=== PATIENT | male | born 1985 ===

== ENCOUNTER 2023-08-11 11:06 | Outpatient (REF) | payer MEDICAID, SELFPAY ==
[2023-08-11 14:31] LABS: MANUAL DIFF FLAG NO
[2023-08-11 14:39] LABS: Basophils Absolute Auto 0.1 X10*3/uL (0.0-0.2); Basophils Percent Auto 1.3 % (0-2); Eosinophils Absolute Auto 0.6 X10*3/uL (0.0-0.4); Eosinophils Percent Auto 7.6 % (0-4); Hematocrit 46.7 % (42.0-52.0); Hemoglobin 16.1 g/dl (14.0-18.0); Imm Gran Abs Auto 0.02 X10*3/uL (0.00-0.03); Imm Gran Pct Auto 0.3 % (0.0-0.4); Lymphocytes Absolute Auto 1.7 X10*3/uL (1.2-4.9); Lymphocytes Percent Auto 22.9 % (20-40); Mean Corpuscular HGB Conc 34.5 g/dl (31.0-36.0); Mean Corpuscular Volume 89.8 fL (80.0-98.0); Mean Platelet Volume 11.4 fL (9.4-12.4); Monocytes Absolute Auto 0.6 X10*3/uL (0.1-1.2); Monocytes Percent Auto 8.5 % (2-11); Neutrophils Absolute Auto 4.5 x10*3/uL (2.0-8.3); Neutrophils Percent Auto 59.4 % (45-73); Platelet Count 188 X10*3/uL (160-400); Red Cell Distribution Width 13.2 % (11.0-16.0); White Blood Count 7.5 X10*3/uL (4.8-10.8)
[2023-08-11 15:04] LABS: Alanine Aminotransferase 36 U/L (0-40); Albumin Level 4.4 g/dL (3.5-5.0); Alkaline Phosphatase 80 U/L (39-117); Anion Gap 12 (12-20); Aspartate Amino Transferase 27 U/L (5-37); Bilirubin Total 0.5 mg/dL (0.0-1.0); Blood Urea Nitrogen 14 mg/dL (9-16); Calcium 9.4 mg/dL (8.4-10.2); Carbon Dioxide 26 mmol/L (22-29); Chloride 107 mmol/L (96-108); Cholesterol 259 mg/dL (<200); Estimated Glomerular Filt Rate > 60; Glucose Fasting 76 mg/dL (60-99); HDL Cholesterol 41 mg/dL (>40); LDL Cholesterol Calculated 184 mg/dL (<100); Sodium 141 mmol/L (135-145); Total Protein 7.9 g/dL (6.5-8.0); Triglycerides 173 mg/dL (<150)
== END 2023-08-11 11:07 | disposition home or self-care (01) ==
LOC: HO.CHCLDS 11:06
PROVIDERS: Visit Provider Family Medicine
DX: E78.5 Hyperlipidemia, unspecified (principal)
CPT/HCPCS: 36415; 80053; 80061; 85025

== ENCOUNTER 2023-12-28 23:03 | Emergency (ER) | payer MEDICAID, SELFPAY ==
[2023-12-28 23:09] VITALS: BP 142/87; PULSE 80; RESP 16; TEMP 36.9; O2SAT 99; BMI 32.3
[2023-12-28 23:27] LABS: MANUAL DIFF FLAG NO
[2023-12-28 23:28] LABS: Basophils Absolute Auto 0.1 X10*3/uL (0.0-0.2); Basophils Percent Auto 0.9 % (0-2); Eosinophils Absolute Auto 0.5 X10*3/uL (0.0-0.4); Eosinophils Percent Auto 5.4 % (0-4); Hematocrit 45.8 % (42.0-52.0); Imm Gran Abs Auto 0.02 X10*3/uL (0.00-0.03); Imm Gran Pct Auto 0.2 % (0.0-0.4); Lymphocytes Absolute Auto 2.9 X10*3/uL (1.2-4.9); Lymphocytes Percent Auto 30.3 % (20-40); Mean Corpuscular HGB Conc 34.9 g/dl (31.0-36.0); Mean Corpuscular Volume 88.8 fL (80.0-98.0); Mean Platelet Volume 10.6 fL (9.4-12.4); Monocytes Absolute Auto 0.8 X10*3/uL (0.1-1.2); Monocytes Percent Auto 8.8 % (2-11); Neutrophils Absolute Auto 5.2 x10*3/uL (2.0-8.3); Neutrophils Percent Auto 54.4 % (45-73); Platelet Count 213 X10*3/uL (160-400); Red Blood Count 5.16 X10*6/uL (4.60-5.80); Red Cell Distribution Width 13.2 % (11.0-16.0); White Blood Count 9.6 X10*3/uL (4.8-10.8)
[2023-12-28 23:43] LABS: Alanine Aminotransferase 71 U/L (0-40); Albumin Level 4.6 g/dL (3.5-5.0); Alkaline Phosphatase 81 U/L (39-117); Anion Gap 12 (12-20); Aspartate Amino Transferase 40 U/L (5-37); Bilirubin Direct 0.1 mg/dL (0.0-0.5); Bilirubin Total 0.5 mg/dL (0.0-1.0); Blood Urea Nitrogen 13 mg/dL (9-16); Calcium 9.5 mg/dL (8.4-10.2); Carbon Dioxide 26 mmol/L (22-29); Chloride 107 mmol/L (96-108); Creatinine Clr Calc Pharmacy 102.5; Estimated Glomerular Filt Rate > 60; Glucose Random 110 mg/dL (60-115); Lipase 41 U/L (8-78); Potassium 3.9 mmol/L (3.3-5.1); Sodium 141 mmol/L (135-145); Total Protein 8.1 g/dL (6.5-8.0)
[2023-12-29 03:20] VITALS: BP 138/88; PULSE 64; RESP 16; TEMP 36.8; O2SAT 95
--- OUTSIDE RECORDS SUMMARY | 2023-12-29 03:51 | XMS_ITS | Continuity of Care Document ---
Author Organization [facility] jose luis Address [address] [place] [address] [address] [place] [address]- Care Team Providers Care Wrapper Stripper Name Role Phone Taras CRUZ, Linda Watkins Primary Care Physician [place] [facility] [place] - 02/19/[address] [place] [address]- Attending Physician: Andrew Capps MD Referring Physician: Linda Grajeda NP Allergies, Adverse Reactions, Alerts Substance Reaction Severity Status penicillin Rash Active Immunizations Given and Recorded Vaccine Date Status Refusal Reason SARS-CoV-2 (COVID-19) mRNA-1273 vaccine 01/26/21 R ecorded SARS-CoV-2 (COVID-19) mRNA-1273 vaccine 12/29/20 R ecorded pneumococcal 23-valent vaccine 09/19/18 Given influenza virus vaccine, inactivated 09/19/18 Give n Medications aspirin 81 mg oral delayed release tablet 81 mg, 1, tablet, By Mouth, Daily, # 30 tablet, Refills 11, Tot. Refills 11, Maintenance, 09/24/20 16:12:00 EST, Route to Pharmacy Electronically, [facility] #[id number], 168, cm, 09/23/20 10:39:00 EST, Height, 92.2, kg, 01/29/19 21:34:00 EDTDr... Start Date: 09/24/20 Stop Date: 09/19/21 Status: Ordered atorvastatin 80 mg oral tablet 1 tablet = 80 mg, By Mouth, Daily, replace 40 mg Rx, # 30 tablet, 11 Refills, Maintenance, 218:47:00 EST, Tablet, [facility] #[id number], Partial fill upon patient request if the prescription is for a schedule II opioid drug., 168, cm, .. Start Date: 09/25/20 Stop Date: 09/20/21 Status: Ordered losartan 25 mg oral tablet 25 mg, 1, tablet, By Mouth, Daily, Call if any significant lightheadedness, # 30 tablet, Refills 11, Tot. Refills 11, Maintenance, 09/24/20 16:12:00 EST, Route to Pharmacy Electronically, [facility] #[id number], 168, cm, 09/23/20 10:39:00 EST, He... Start Date: 09/24/20 Stop Date: 09/19/21 Status: Ordered metoprolol 25 mg oral tablet 25 mg, 1, tablet, By Mouth, Daily, # 30 tablet, Refills 11, Tot. Refills 11, Maintenance, 09/24/20 16:12:00 EST, Route to Pharmacy Electronically, [facility] #[id number], 168, cm, 09/23/20 10:39:00 EST, Height, 92.2, kg, 01/29/19 21:34:00 EDTDr... Start Date: 09/24/20 Stop Date: 09/19/21 Status: Ordered Problem List Condition Effective Dates Status Health Status Inform ant CAD (coronary artery disease ), [place] coronary artery(Confirmed) Active Chronic GERD(Confirmed) Active Hx of CABG(Confirmed) 2015 Active Hyperlipidemia(Confirmed) Active Hypertensive heart disease(Confirmed) Active Mild intermittent asthma(Confirmed) Active WENDIE (obstructive sleep apnea)(Confirmed) Active Prediabetes(Confirmed) Active 1Surgery in [place], unknown #vessels Vital Signs Most recent to oldest [Reference Range]: 1 Height 168 cm (02/12/21 11:07 AM) Weight 92 kg (02/12/21 11:07 AM) Body Mass Index [18.5-24.99] 32.6 *>HHI* (02/12/21 11:07 AM) Temperature [96.8-100.4 DegF] 98.6 DegF (02/12/21 11:07 AM) Social History Social History Type Response Tobacco Tobacco user in hous ehold: No. Type: Cigarettes. Tobacco use times per day: Former smoker, 5 cigarettes a day. Started at age: 15 Years. Stopped at age: 22 Years. Sex
--- OUTSIDE RECORDS SUMMARY | 2023-12-29 03:51 | XMS_ITS | Continuity of Care Document ---
Author Organization [facility] Address [address] [place] [address]- Care Team Providers Care Computer Artist Name Role Phone Taras CAN PATCHER, Linda Watkins Primary Care Physician ( [phone] Encounter [facility] Date(s): 11/16/21 - 11/16/[address] [address]- Discharge Disposition: A-D/C Home Attending Physician: Garfield Fuentes MD Admitting Physician: Garfield Fuentes MD Referring Physician: Not on Staff, Referring MD Allergies, Adverse Reactions, Alerts Substance Reaction Severity Status penicillin Rash Active Immunizations Given and Recorded Vaccine Date Status Refusal Reason SARS-CoV-2 (COVID-19) mRNA-1273 vaccine 01/26/21 R ecorded SARS-CoV-2 (COVID-19) mRNA-1273 vaccine 12/29/20 R ecorded pneumococcal 23-valent vaccine 09/19/18 Given influenza virus vaccine, inactivated 09/19/18 Give n Medications Bactrim DS 800 mg-160 mg oral tablet 1 tablet, By Mouth, Every 12 hours, for 10 days, # 20 tablet, 0 Refills, Acute 11/26/21 13:41:00 EDT, 11/16/21 13:41:00 EDT, Tablet, [id number], Partial fill upon patient request if the prescription is for a schedule II opioid drug., 1 tablet... Start Date: 11/16/21 Stop Date: 11/26/21 Status: Ordered Problem List Condition Effective Dates Status Health Status Inform ant CAD (coronary artery disease ), [place] coronary artery(Confirmed) Active Chronic GERD(Confirmed) Active Hx of CABG(Confirmed) 2015 Active Hyperlipidemia(Confirmed) Active Hypertensive heart disease(Confirmed) Active Mild intermittent asthma(Confirmed) Active Obese class I(Confirmed) Active Class 1 obesity with body ma ss index (BMI) of 30.0 to 30.9 in adult(Confirmed) Active WENDIE (obstructive sleep apnea)(Confirmed) Active Prediabetes(Confirmed) Active 1Surgery in [place], unknown #vessels Vital Signs Most recent to oldest [Reference Range]: 1 2 3 Height 168 cm (11/16/21 11:39 AM) 175 cm (11/16/21 11:21 AM) Weight 86.5 kg (11/16/21 11:39 AM) 88.5 kg (11/16/21 11:21 AM) Oxygen Saturation [94-100 %] 97 % (11/16/21 1:57 PM) 98 % (11/16/21 11:39 AM) 100 % (11/16/21 11:26 AM) Pulse Rate [55-90 bpm] 72 bpm (11/16/21 1:57 PM) 20 bpm *L* (11/16/21 11:39 AM) 85 bpm (11/16/21 11:26 AM) Blood Pressure [90-138/55-84 mm Hg] 143/88mm Hg *H* (11/16/21 1:57 PM) 149/103mm Hg *H* (11/16/21 11:39 AM) 159/92mm Hg *H* (11/16/21 11:26 AM) Respiratory Rate [16-30 br/min] 18 br/min (11/16/21 1:57 PM) 20 br/min (11/16/21 11:39 AM) Temperature [96.8-100.4 DegF] 98.4 DegF (11/16/21 1:57 PM) 98.2 DegF (11/16/21 11:39 AM) 98.5 DegF (11/16/21 11:26 AM) Mode of Delivery (Oxygen) Room air (11/16/21 1:57 PM) Room air (11/16/21 11:39 AM) Room air (11/16/21 11:26 AM) Blood pressure sites Arm, left (11/16/21 1:57 PM) Arm, right (11/16/21 11:26 AM) Temperature Route Oral (11/16/21 1:57 PM) Oral (11/16/21 11:39 AM) Temporal (11/16/21 11:26 AM) Dry Weight 86.5 kg (11/16/21 11:39 AM) 88.5 kg (11/16/21 11:21 AM) Weight Obtained Via Patient/family stated (11/16/21 11:39 AM) Standing scale (11/16/21 11:21 AM) Dry Weight Obtained Via Patient/family stated (11/16/21 11:39 AM) Social History Social History Type Response Tobacco Tobacco user in hous ehold: No. Type: Cigarettes. Tobacco use times per day: Former smoker, 5 cigarettes a day. Started at age: 15 Years. Stopped at age: 22 Years. Sex
--- OUTSIDE RECORDS SUMMARY | 2023-12-29 03:51 | XMS_ITS | Continuity of Care Document ---
Author Organization [facility] Address [address] [place] [address]- Care Team Providers Care Audit Specialist Name Role Phone Linda Grajeda NP Primary Care Physician Encounter [facility] Date(s): 05/06/20 - 06/05/20 [facility] [address] [place] [address] [facility] Attending Physician: Haresh Jeffrey Admitting Physician: Haresh Jeffrey Referring Physician: AdmtrHaresh Allergies, Adverse Reactions, Alerts Substance Reaction Severity Status penicillin Rash Active Immunizations Given and Recorded Vaccine Date Status Refusal Reason pneumococcal 23-valent vaccine 09/19/18 Given influenza virus vaccine, inactivated 09/19/18 Give n Problem List Condition Effective Dates Status Health Status Inform ant CAD (coronary artery disease ), [place] coronary artery(Confirmed) Active Chronic GERD(Confirmed) Active Hx of CABG(Confirmed) 2015 Active Hyperlipidemia(Confirmed) Active Hypertensive heart disease(Confirmed) Active Mild intermittent asthma(Confirmed) Active WENDIE (obstructive sleep apnea)(Confirmed) Active Prediabetes(Confirmed) Active 1Surgery in [place], unknown #vessels Social History Social History Type Response Tobacco Tobacco user in hous ehold: No. Type: Cigarettes. Tobacco use times per day: Former smoker, 5 cigarettes a day. Started at age: 15 Years. Stopped at age: 22 Years. Sex
--- OUTSIDE RECORDS SUMMARY | 2023-12-29 03:51 | XMS_ITS | Continuity of Care Document ---
Author Organization [facility] Address [address] [place] [address]- Care Team Providers Care Pebble [place] Operator Name Role Phone Linda Grajeda NP Primary Care Physician Encounter [facility] [place] Date(s): 02/02/23 - 03/04/23 [facility] [address] [place] [address]- Attending Physician: Haresh Jeffrey Admitting Physician: Haresh Jeffrey Referring Physician: Haresh Jeffrey Allergies, Adverse Reactions, Alerts Substance Reaction Severity Status penicillin Rash Active Immunizations Given and Recorded Vaccine Date Status Refusal Reason SARS-CoV-2 (COVID-19) mRNA-1273 vaccine 01/26/21 R ecorded SARS-CoV-2 (COVID-19) mRNA-1273 vaccine 12/29/20 R ecorded pneumococcal 23-valent vaccine 09/19/18 Given influenza virus vaccine, inactivated 09/19/18 Give n Medications albuterol CFC free 90 mcg/inh inhalation aerosol 2, puffs, Inhalation, Every 4 hours, PRN, # 1 each, Refills 3, Tot. Refills 3, Soft Stop, 10/07/21 9:14:00 EST, Route to Pharmacy Electronically, [id number], [facility] #[id number], 169, cm, 07/18/21 7:10:00 EST, Height, 87.7, kg... Start Date: 10/07/21 Status: Ordered aspirin 81 mg oral delayed release tablet 81 mg, 1, tablet, By Mouth, Daily, # 90 tablet, Refills 3, Tot. Refills 3, Maintenance, 10/20/22 11:35:00 EST, Route to Pharmacy Electronically, [facility]/pharm[facility] #[id number], 168, cm, 10/20/22 10:58:00 EST, Height, 86.5, kg, 11/16/21 11:39:00 EDT, Dry Weight Start Date: 10/20/22 Status: Ordered atorvastatin 80 mg oral tablet 1 tablet, By Mouth, Daily, # 90 tablet, 3 Refills, Maintenance, 10/20/22 11:34:00 EST, [facility]/pharm[facility]#[id number], 168, cm, 10/20/22 10:58:00 EST, Height, 86.5, kg, 11/16/21 11:39:00 EDT, Dry Weight Start Date: 10/20/22 Status: Ordered losartan 25 mg oral tablet 1 tablet, By Mouth, Daily, # 90 tablet, 3 Refills, Maintenance, 10/20/22 11:34:00 EST, [facility]/pharmacy#[id number], 168, cm, 10/20/22 10:58:00 EST, Height, 86.5, kg, 11/16/21 11:39:00 EDT, Dry Weight Start Date: 10/20/22 Status: Ordered metoprolol 25 mg oral tablet, extended release 25 mg, 1, tablet, By Mouth, Daily, # 90 tablet, Refills 3, Tot. Refills 3, Maintenance, 10/20/22 11:34:00 EST, Route to Pharmacy Electronically, [facility]/pharm[facility] #[id number], Partial fill upon patient request if the prescription is for a schedule II opioid drug... Start Date: 10/20/22 Status: Ordered omeprazole 40 mg oral enteric coated capsule 1 capsule, By Mouth, Daily, # 90 capsule, 0 Refills, Maintenance, 02/14/23 20:47:00 EDT, [id number], 168, cm, 02/02/23 8:13:00 EDT, Height, 86.5, kg, 11/16/21 11:39:00 EDT, Dry Weight Start Date: 02/14/23 Status: Ordered Symbicort 80mcg/4.5mcg Inhaler 2, puffs, Inhalation, 2 times a day, # 3 each, Refills 1, Tot. Refills 1, Maintenance, 11/03/21 9:44:00 EST, Aerosol, Route to Pharmacy Electronically, [id number], [facility]/pharmacy #[id number], 169, cm, 07/18/21 7:10:00 EST, Height, 87... Start Date: 11/03/21 Status: Ordered Zetia 10 mg oral tablet 1 tablet = 10 mg, By Mouth, Daily, # 90 tablet, 3 Refills, Maintenance, 10/20/22 11:39:00 EST, Tablet, [id number], Partial fill upon patient request if the prescription is for a schedule II opioid drug., 168, cm, 10/20/22 10:58:00 EST, Height,... Start Date: 10/20/22 Status: Ordered Problem List Condition Confirmation Course Effective Dates Status H ealth Status Informant CAD (coronary artery disease), [place] coronary artery Confirmed Active Epilepsy Confirmed Active Chronic GERD Confirmed Active Hx of CABG 1 Confirmed 2016 Active Hyperlipidemia Confirmed Active Hypertensive heart disease Confirmed Active Mild intermittent asthma Confirmed Active Obese class I Confirmed Active Class 1 obesity with body mass index (BMI) of 30.0 to 30.9 in adult Confirmed Active WENDIE (obstructive sleep apnea) Confirmed Active Prediabetes Confirmed Active 1Surgery in [place], unknown #vessels Social History Social History Type Response Smoking Status Former smoker, quit more than 30 days ago entered on: 10/20/22 Sex Cardiology * Event Display: Non BH Cardiovascular Results Authored Date: * Event Display: Cardiology Office Note, Non-BH Authored Date: * Event Display: Cardiology Office Note, Non-BH Authored Date: * Event Display: Cardiology Office Note, Non-BH Authored Date: * Event Display: Non BH Cardiovascular Results Authored Date: Laboratory * Event Display: Non BH Lab Results Authored Date: * Event Display: Non BH Lab Results Authored Date: Patient Care team information Care Team Personnel Name: Zoie Santiago RN Position: S RN Member Role: Primary Care Nurse Name: Linda Grajeda NP Position: [facility] PCO Associate Professional Member Role: PCP Address: Address: [address] [place] [address]- Care Team Related Persons Name: KALEN BECKER Address: home [address] [place] [address] [address] [place] [address] Name: KALEN BUSH Address: home [address] [place] [id number] Name: WILLIAM STINSON
--- OUTSIDE RECORDS SUMMARY | 2023-12-29 03:51 | XMS_ITS | Continuity of Care Document ---
Author Organization [facility] [place] Address [address] [place] [address]- Care Team Providers Care Wireless Technician Name Role Phone Taras CRUZ, Linda Watkins Primary Care Physician Encounter [facility] Date(s): 01/08/22 - 05/08/22 [facility] [address] [place], [place] [address] Attending Physician: Linda Grajeda NP Allergies, Adverse Reactions, [...] 10/07/21 9:14:00 EST, Route to Pharmacy Electronically, [id number], [facility] #[id number], 169, cm, 07/18/21 7:10:00 EST, Height, 87.7, kg... Start Date: 10/07/21 Status: Ordered aspirin 81 mg oral delayed release tablet 81 mg, 1, tablet, By Mouth, Daily, # 90 tablet, Refills 1, Tot. Refills 1, Maintenance, 10/16/21 8:06:00 EST, Route to Pharmacy Electronically, [facility]/pharm[facility] #[id number], 169, cm, 07/18/21 7:10:00 EST, Height, 87.7, kg, 07/17/21 16:43:00 EST, Dry Weight Start Date: 10/16/21 Status: Ordered atorvastatin 80 mg oral tablet 1 tablet, By Mouth, Daily, # 90 tablet, 1 Refills, Maintenance, 04/13/22 4:52:00 EDT, [facility]/pharm[facility] #[id number], 168, cm, 03/22/22 10:18:00 EDT, Height, 86.5, kg, 11/16/21 11:39:00 EDT, Dry Weight Start Date: 04/13/22 Status: Ordered losartan 25 mg oral tablet 1 tablet, By Mouth, Daily, # 90 tablet, 1 Refills, Maintenance, 04/13/22 4:54:00 EDT, [facility]/pharm[facility] #[id number], 168, cm, 03/22/22 10:18:00 EDT, Height, 86.5, kg, 11/16/21 11:39:00 EDT, Dry Weight Start Date: 04/13/22 Status: Ordered Metoprolol Tartrate 25 mg oral tablet 1 tablet, By Mouth, Daily, # 90 tablet, 1 Refills, Maintenance, 04/13/22 4:54:00 EDT, [facility]/pharm[facility] #[id number], 168, cm, 03/22/22 10:18:00 EDT, Height, 86.5, kg, 11/16/21 11:39:00 EDT, Dry Weight Start Date: 04/13/22 Status: Ordered omeprazole 40 mg oral enteric coated capsule 1 capsule = 40 mg, By Mouth, Daily, # 90 capsule, 1 Refills, Maintenance, 10/07/21 9:12:00 EST, EC Capsule, [facility]/pharmacy #[id number], Partial fill upon patient request if the prescription is for a scheduleII opioid drug., 169, cm, 07/18/21 7:10:00 EST, Hei... Start Date: 10/07/21 Status: Ordered Symbicort 80mcg/4.5mcg Inhaler 2, puffs, Inhalation, 2 times a day, # 3 each, Refills 1, Tot. Refills 1, Maintenance, 11/03/21 9:44:00 EST, Aerosol, Route to Pharmacy Electronically, [id number], [facility]/pharmacy #[id number], 169, cm, 07/18/21 7:10:00 EST, Height, 87... Start Date: 11/03/21 Status: Ordered Zetia 10 mg oral tablet 1 tablet = 10 mg, By Mouth, Daily, # 30 tablet, 5 Refills, Maintenance, 04/05/22 18:32:00 EDT, Tablet, [facility]/pharmacy #[id number], Partial fill upon patient request if the prescription is for a schedule II opioid drug., 168, cm, 03/22/22 10:18:00 EDT, Height,... Start Date: 04/05/22 Status: Ordered Zetia 10 mg oral tablet 1 tablet = 10 mg, By Mouth, Daily, # 90 tablet, 0 Refills, Maintenance, 04/06/22 16:17:00 EDT, Tablet, [facility]/pharm[facility] #[id number], Partial fill upon patient request if the prescription is for a schedule II opioid drug., 168, cm, 03/22/22 10:18:00 EDT, Height,... Start Date: 04/06/22 Status: Ordered Problem List Condition Effective Dates Status Health Status Inform ant CAD (coronary artery disease ), [place] coronary artery(Confirmed) Active Chronic GERD(Confirmed) Active Hx of CABG(Confirmed) 2015 Active Hyperlipidemia(Confirmed) Active Hypertensive heart disease(Confirmed) Active Mild intermittent asthma(Confirmed) Active Obese class I(Confirmed) Active Class 1 obesity with body ma ss index (BMI) of 30.0 to 30.9 in adult(Confirmed) Active WENDIE (obstructive sleep apnea)(Confirmed) Active Prediabetes(Confirmed) Active 1Surgery in [place], unknown #vessels Social History Social History Type Response Tobacco Tobacco user in hous ehold: No. Type: Cigarettes. Tobacco use times per day: Former smoker, 5 cigarettes a day. Started at age: 15 Years. Stopped at age: 22 Years. Sex Care Team Personnel Name: Linda Grajeda NP Address: [address] [place] [address]
--- OUTSIDE RECORDS SUMMARY | 2023-12-29 03:51 | XMS_ITS | Continuity of Care Document ---
Author Organization [facility] ter Address [address] [place] [id number]- Care Team Providers Care Manager Star Name Role Phone Taras CRUZ, Linda Watkins Primary Care Physician ( [phone] Encounter [facility] Date(s): 07/17/21 - 07/18/[address] [address] Encounter Diagnosis Mild intermittent asthma(Discharge Diagnosis) - 07/17/21 Dizziness(Final) - 07/18/21 Discharge Disposition: A-D/C Home Attending Physician: Sergio Hawkins MD Admitting Physician: Yancy Smith MD Referring Physician: Not on Staff, Referring [...] mcg/inh inhalation aerosol 2, puffs, Inhalation, Every 6 hours, PRN, # 8.5 Gm, Refills 0, Tot. Refills 0, Soft Stop, 07/18/21 8:06:00 EST, Route to Pharmacy Electronically, [id number], [facility], 169, cm, 07/18/21 7:10:00 EST, Height, 87... Start Date: 07/18/21 Stop Date: 08/17/21 Status: Ordered aspirin 81 mg oral delayed release tablet 81 mg, 1, tablet, By Mouth, Daily, # 90 tablet, Refills 0, Tot. Refills 0, Maintenance, 07/18/21 8:06:00 EST, Route to Pharmacy Electronically, [facility], 169, cm, 07/18/21 7:10:00 EST, Height, 87.7, kg, 07/17/21 16:43:00 EST, Dry Weight Start Date: 07/18/21 Stop Date: 10/16/21 Status: Ordered atorvastatin 80 mg oral tablet 1 tablet = 80 mg, By Mouth, Daily, # 30 tablet, 0 Refills, Maintenance, 07/18/21 8:07:00 EST, Tablet, [facility], Partial fill upon patient request if the prescription is for a scheduleII opioid drug., 169, cm, 07/18/21 7:10:00 EST, Hei... Start Date: 07/18/21 Stop Date: 08/17/21 Status: Ordered losartan 25 mg oral tablet 25 mg, 1, tablet, By Mouth, Daily, # 30 tablet, Refills 0, Tot. Refills 0, Maintenance, 07/18/21 8:06:00 EST, Route to Pharmacy Electronically, [facility], 169, cm, 07/18/21 7:10:00 EST, Height, 87.7, kg, 07/17/21 16:43:00 EST, Dry Weight Start Date: 07/18/21 Stop Date: 08/17/21 Status: Ordered meclizine 25 mg oral tablet 1 tablet = 25 mg, By Mouth, 3 times a day, PRN for dizziness, for 30 days, # 60 tablet, 0 Refills, Acute 08/17/21 8:09:00 EST, 07/18/21 8:09:00 EST, Tablet, [facility], Partial fill upon patient request if the prescription is for a sched... Start Date: 07/18/21 Stop Date: 08/17/21 Status: Ordered metoprolol 25 mg oral tablet 25 mg, Tablet, By Mouth, 07/18/21 9:00:00 EST Start Date: 07/18/21 Stop Date: 07/18/21 Status: Completed metoprolol 25 mg oral tablet 25 mg, 1, tablet, By Mouth, Daily, # 30 tablet, Refills 0, Tot. Refills 0, Maintenance, 07/18/21 8:08:00 EST, Route to Pharmacy Electronically, [facility], 169, cm, 07/18/21 7:10:00 EST, Height, 87.7, kg, 07/17/21 16:43:00 EST, Dry Weight Start Date: 07/18/21 Stop Date: 08/17/21 Status: Ordered omeprazole 40 mg oral enteric coated capsule 1 capsule = 40 mg, By Mouth, Daily, # 30 capsule, 0 Refills, Maintenance, 07/18/21 8:08:00 EST, EC Capsule, [facility], Partial fill upon patient request if the prescription is for a schedule II opioid drug., 169, cm, 07/18/21 7:10:00 ES... Start Date: 07/18/21 Stop Date: 08/17/21 Status: Ordered Symbicort 80mcg/4.5mcg Inhaler 2, puffs, Inhalation, 2 times a day, # 6.9 Gm, Refills 0, Tot. Refills 0, Maintenance, 07/18/21 8:08:00 EST, Aerosol, Route to Pharmacy Electronically, [id number], [facility], 169, cm, 07/18/21 7:10:00 EST, Heig... Start Date: 07/18/21 Status: Ordered Problem List Condition Effective Dates Status Health Status Inform ant CAD (coronary artery disease ), [place] coronary artery(Confirmed) Active Chronic GERD(Confirmed) Active Hx of CABG(Confirmed) 2015 Active Hyperlipidemia(Confirmed) Active Hypertensive heart disease(Confirmed) Active Mild intermittent asthma(Confirmed) Active Obese class I(Confirmed) Active WENDIE (obstructive sleep apnea)(Confirmed) Active Prediabetes(Confirmed) Active 1Surgery in [place], unknown #vessels Diagnosis Diagnosis Type Effective Dates Health Status Clinical Service Informant Mild intermittent asthma Discharge Diagnosis 07/17/21 Non-Specified Results Radiology Reports * Exam Date Time Procedure Performing Provider Status 07/17/21 12:26 PM Chest 2 Views Frontal and Lat Tomer Saldana; Brian (Verified) Notes: (Chest 2 Views Frontal and Lat) Reason For Exam: Chest Pain;Other: RESULT: Chest 2 Views Frontal and Lat Chest 2 Views Frontal and Lat Hx of Present Illness: Chest pain. COMPARISON: 06/22/2018 FINDINGS: LINES AND TUBES: None. LUNGS AND PLEURA: Clear lungs. Normal pulmonary vascularity. No pleural effusion. No pneumothorax. HEART, MEDIASTINUM AND JAVIER: Heart is normal in size. Normal upper mediastinal and hilar contour. BONES AND SOFT TISSUES: No acute abnormality. Status post median sternotomy. IMPRESSION: No acute abnormality. WSN: [id number] Ordering Physician: Kaur Hernandez Dictated By: Avi Gomez MD Dictated Date/Time: 07/17/21 12:43 p Reviewed By: Avi Gomez MD Signed By: Avi Gomez MD Signed Date/Time: 07/17/21 12:43 pm Transcribed By: DERIAN Transcribed Date/Time: 07/17/21 12:42 pm Vital Signs Most recent to oldest [Reference Range]: 1 2 3 Height 169 cm (07/18/21 7:10 AM) 169 cm (07/18/21 3:51 AM) 169 cm (07/17/21 10:25 PM) Weight 87.7 kg (07/17/21 4:42 PM) Oxygen Saturation [94-100 %] 100 % (07/18/21 7:10 AM) 99 % (07/18/21 3:51 AM) 100 % (07/17/21 10:25 PM) Pulse Rate [55-90 bpm] 66 bpm (07/18/21 8:42 AM) 66 bpm (07/18/21 7:10 AM) 61 bpm (07/17/21 10:25 PM) Body Mass Index [18.5-24.99] 30.71 *>HHI* (07/17/21 4:42 PM) Blood Pressure [90-138/55-84 mm Hg] 131/75mm Hg (07/18/21 8:42 AM) 131/75mm Hg (07/18/21 7:10 AM) 136/87mm Hg (07/17/21 10:25 PM) Respiratory Rate [16-30 br/min] 18 br/min (07/18/21 10:44 AM) 20 br/min (07/18/21 7:10 AM) 18 br/min (07/18/21 3:51 AM) Temperature [96.8-100.4 DegF] 98.5 DegF (07/18/21 7:10 AM) 98.4 DegF (07/18/21 3:51 AM) 98.2 DegF (07/17/21 10:25 PM) Mode of Delivery (Oxygen) Room air (07/18/21 7:10 AM) Room air (07/18/21 3:51 AM) Room air (07/17/21 10:25 PM) Blood pressure sites Arm, left (07/18/21 7:10 AM) Arm, right (07/17/21 10:25 PM) Arm, left (07/17/21 6:34 PM) Temperature Route Oral (07/18/21 7:10 AM) Oral (07/18/21 3:51 AM) Oral (07/17/21 10:25 PM) Dry Weight 87.7 kg (07/17/21 4:42 PM) Social History Social History Type Response Tobacco Tobacco user in hous ehold: No. Type: Cigarettes. Tobacco use times per day: Former smoker, 5 cigarettes a day. Started at age: 15 Years. Stopped at age: 22 Years. Sex
--- OUTSIDE RECORDS SUMMARY | 2023-12-29 03:51 | XMS_ITS | Continuity of Care Document ---
Author Organization [facility] Primary [facility] [place] Address [address] [place] [address]- Care Team Providers Care Merchandise Deliverer Name Role Phone Linda Grajeda NP Primary Care Physician Encounter [facility] Date(s): 04/14/21 - 05/14/21 [facility] [place] [address] [place] [address]- Attending Physician: Haresh Jeffrey Admitting Physician: AdmtrHaresh Referring Physician: AdmtrHaresh Allergies, Adverse Reactions, Alerts [...] 09/24/20 16:12:00 EST, Route to Pharmacy Electronically, [facility][id number], 168, cm, 09/23/20 10:39:00 EST, Height, 92.2, kg, 01/29/19 21:34:00 EDTDr... Start Date: 09/24/20 Stop Date: 09/19/21 Status: Ordered atorvastatin 80 mg oral tablet 1 tablet = 80 mg, By Mouth, Daily, replace 40 mg Rx, # 30 tablet, 11 Refills, Maintenance, 218:47:00 EST, Tablet, [facility] #[id number], Partial fill upon patient request if the prescription is for a schedule II opioid drug., 168, cm, .. Start Date: 09/25/20 Stop Date: 09/20/21 Status: Ordered losartan 25 mg oral tablet 25 mg, 1, tablet, By Mouth, Daily, Call if any significant lightheadedness, # 30 tablet, Refills 11, Tot. Refills 11, Maintenance, 09/24/20 16:12:00 EST, Route to Pharmacy Electronically, [facility][id number], 168, cm, 09/23/20 10:39:00 EST, He... Start Date: 09/24/20 Stop Date: 09/19/21 Status: Ordered metoprolol 25 mg oral tablet 25 mg, 1, tablet, By Mouth, Daily, # 30 tablet, Refills 11, Tot. Refills 11, Maintenance, 09/24/20 16:12:00 EST, Route to Pharmacy Electronically, [facility][id number], 168, cm, 09/23/20 10:39:00 EST, Height, 92.2, kg, 01/29/19 21:34:00 EDTDr... Start Date: 09/24/20 Stop Date: 09/19/21 Status: Ordered Problem List Condition Effective Dates Status Health Status Inform ant CAD (coronary artery disease ), [place] coronary artery(Confirmed) Active Chronic GERD(Confirmed) Active Hx of CABG(Confirmed) 2015 Active Hyperlipidemia(Confirmed) Active Hypertensive heart disease(Confirmed) Active Mild intermittent asthma(Confirmed) Active WENDIE (obstructive sleep apnea)(Confirmed) Active Prediabetes(Confirmed) Active 1Surgery in [place], unknown #vessels Social History Social History Type Response Tobacco Tobacco user in hous ehold: No. Type: Cigarettes. Tobacco use times per day: Former smoker, 5 cigarettes a day. Started at age: 15 Years. Stopped at age: 22 Years. Sex
--- OUTSIDE RECORDS SUMMARY | 2023-12-29 03:51 | XMS_ITS | Continuity of Care Document ---
Author Organization [facility] Primary [facility] [place] Address [address] [place] [address]- Care Team Providers Care Construction Specialist Name Role Phone Taras TECHNICAL CABLE JOINTER, Linda Watkins Primary Care Physician Encounter [facility] Date(s): 10/06/21 - 11/05/21 [facility] [place] [address] [place] [address]- Allergies, Adverse Reactions, Alerts Substance Reaction Severity Status penicillin Rash Active Immunizations Given and Recorded Vaccine Date Status Refusal Reason SARS-CoV-2 (COVID-19) mRNA-1273 vaccine 01/26/21 R ecorded SARS-CoV-2 (COVID-19) mRNA-1273 vaccine 12/29/20 R ecorded pneumococcal 23-valent vaccine 09/19/18 Given influenza virus vaccine, inactivated 09/19/18 Give n Problem List Condition Effective Dates Status Health Status Inform ant CAD (coronary artery disease ), [place] coronary artery(Confirmed) Active Chronic GERD(Confirmed) Active Hx [...]
--- OUTSIDE RECORDS SUMMARY | 2023-12-29 03:51 | XMS_ITS | Continuity of Care Document ---
Author Organization [facility] [place] Address [address] [place] [address]- Care Team Providers Care Table Cover Folder Name Role Phone Not on Staff, PCP Primary Care Physician Unavail able Encounter [facility] Date(s): 03/28/23 - 04/27/23 [facility] [address] [place] [address]- Attending Physician: AdmHaresh licea Admitting Physician: Admtr, Haresh Referring Physician: Admtr, Ar8 Allergies, Adverse Reactions, Alerts Substance Reaction Severity [...] 10/07/21 9:14:00 EST, Route to Pharmacy Electronically, [id number], [id number], 169, cm, 07/18/21 7:10:00 EST, Height, 87.7, kg... Start Date: 10/07/21 Status: Ordered aspirin 81 mg oral delayed release tablet 81 mg, 1, tablet, By Mouth, Daily, # 90 tablet, Refills 3, Tot. Refills 3, Maintenance, 04/06/23 11:16:00 EDT, Route to Pharmacy Electronically, [facility][id number], 168, cm, 04/06/23 10:55:00 EDT, Height, 86.5, kg, 11/16/21 11:39:00 EDT, Dry Weight Start Date: 04/06/23 Status: Ordered atorvastatin 80 mg oral tablet 1 tablet, By Mouth, Daily, # 90 tablet, 3 Refills, Maintenance, 04/06/23 11:16:00 EDT, [facility]1130, 168, cm, 04/06/23 10:55:00 EDT, Height, 86.5, kg, 11/16/21 11:39:00 EDT, Dry Weight Start Date: 04/06/23 Status: Ordered losartan 25 mg oral tablet 1 tablet, By Mouth, Daily, # 90 tablet, 3 Refills, Maintenance, 04/06/23 11:16:00 EDT, [id number], 168, cm, 04/06/23 10:55:00 EDT, Height, 86.5, kg, 11/16/21 11:39:00 EDT, Dry Weight Start Date: 04/06/23 Status: Ordered metoprolol 25 mg oral tablet, extended release 25 mg, 1, tablet, By Mouth, Daily, # 90 tablet, Refills 3, Tot. Refills 3, Maintenance, 04/06/23 11:16:00 EDT, [facility]ically, [id number], Partial fill upon patient request if the prescription is for a schedule II opioid drug... Start Date: 04/06/23 Status: Ordered omeprazole 40 mg oral enteric coated capsule 1 capsule, By Mouth, Daily, # 90 capsule, 0 Refills, Maintenance, 02/14/23 20:47:00 EDT, [id number], 168, cm, 02/02/23 8:13:00 EDT, Height, 86.5, kg, 11/16/21 11:39:00 EDT, Dry Weight Start Date: 02/14/23 Status: Ordered Symbicort 80mcg/4.5mcg Inhaler 2, puffs, Inhalation, 2 times a day, # 3 each, Refills 1, Tot. Refills 1, Maintenance, 11/03/21 9:44:00 EST, Aerosol, Route to Pharmacy Electronically, [id number], [id number], 169, cm, 07/18/21 7:10:00 EST, Height, 87... Start Date: 11/03/21 Status: Ordered Zetia 10 mg oral tablet 1 tablet = 10 mg, By Mouth, Daily, # 90 tablet, 3 Refills, Maintenance, 04/06/23 11:16:00 EDT, Tablet, [id number], Partial fill upon patient request if the prescription is for a schedule II opioid drug., 168, cm, 04/06/23 10:55:00 EDT, Height,... Start Date: 04/06/23 Status: Ordered Problem List Condition Confirmation Course Effective Dates Status H ealth Status Informant CAD (coronary artery disease), [place] coronary artery Confirmed Active Epilepsy Confirmed Active Chronic GERD Confirmed Active Hx of CABG 1 Confirmed 2016 Active Hyperlipidemia Confirmed Active Hypertensive heart disease Confirmed Active Mild intermittent asthma Confirmed Active Obese class I Confirmed Active Class 1 obesity with body mass index (BMI) of 30.0 to 30.9 in adult Confirmed Active WENDIE (obstructive sleep apnea) Confirmed Active Prediabetes Confirmed Active 1Surgery in [place], unknown #vessels Social History Social History Type Response Smoking Status Former smoker, quit more than 30 days ago entered on: 10/20/22 Sex Patient Care team information Care Team Personnel Name: Zoie Santiago RN Position: [facility] RN Member Role: Primary Care Nurse Name: Not on Staff, PCP Position: [facility] Physician (General Medicine) Member Role: PCP Care Team Related Persons Name: KALEN BECKER Address: home [address] [place] [address] [address] [place] [address] Name: KALEN BUSH Address: home [address] [place] [address] Name: WILLIAM STINSON
--- OUTSIDE RECORDS SUMMARY | 2023-12-29 03:51 | XMS_ITS | Continuity of Care Document ---
Author Organization [facility] Primary [facility] [place] Address [address] [place] [address]- Care Team Providers Care Loading Unit Operator Name Role Phone Taras BOAT WORKER, Linda Watkins Primary Care Physician [id number] Date(s[facility] 07/13/22 - 12/10/22 [facility] [place] [address] [place] [address]- Attending Physician: Fuad Mendez MD, Chandan Allergies, Adverse Reactions, Alerts Substance Reaction Severity [...] 10/07/21 9:14:00 EST, Route to Pharmacy Electronically, [id number], [facility][id number], 169, cm, 07/18/21 7:10:00 EST, Height, 87.7, kg... Start Date: 10/07/21 Status: Ordered aspirin 81 mg oral delayed release tablet 81 mg, 1, tablet, By Mouth, Daily, # 90 tablet, Refills 3, Tot. Refills 3, Maintenance, 10/20/22 11:35:00 EST, Route to Pharmacy Electronically, [id number], 168, cm, 10/20/22 10:58:00 EST, Height, 86.5, kg, 11/16/21 11:39:00 EDT, Dry Weight Start Date: 10/20/22 Status: Ordered atorvastatin 80 mg oral tablet 1 tablet, By Mouth, Daily, # 90 tablet, 3 Refills, Maintenance, 10/20/22 11:34:00 EST, [facility] 168, cm, 10/20/22 10:58:00 EST, Height, 86.5, kg, 11/16/21 11:39:00 EDT, Dry Weight Start Date: 10/20/22 Status: Ordered losartan 25 mg oral tablet 1 tablet, By Mouth, Daily, # 90 tablet, 3 Refills, Maintenance, 10/20/22 11:34:00 EST, [facility] 168, cm, 10/20/22 10:58:00 EST, Height, 86.5, kg, 11/16/21 11:39:00 EDT, Dry Weight Start Date: 10/20/22 Status: Ordered metoprolol 25 mg oral tablet, extended release 25 mg, 1, tablet, By Mouth, Daily, # 90 tablet, Refills 3, Tot. Refills 3, Maintenance, 10/20/22 11:34:00 EST, [id number] Partial fill upon patient request if the prescription is for a schedule II opioid drug... Start Date: 10/20/22 Status: Ordered omeprazole 40 mg oral enteric coated capsule 1 capsule, By Mouth, Daily, # 90 capsule, 1 Refills, Maintenance, 08/17/22 11:12:00 EST, [id number], 168, cm, 03/22/22 10:18:00 EDT, Height, 86.5, kg, 11/16/21 11:39:00 EDT, Dry Weight Start Date: 08/17/22 Status: Ordered Symbicort 80mcg/4.5mcg Inhaler 2, puffs, Inhalation, 2 times a day, # 3 each, Refills 1, Tot. Refills 1, Maintenance, 11/03/21 9:44:00 EST, Aerosol, Route to Pharmacy Electronically, [id number], [id number], 169, cm, 07/18/21 7:10:00 EST, [...] ealth Status Informant CAD (coronary artery disease), [place] coronary artery Confirmed Active Epilepsy Confirmed Active Chronic GERD Confirmed Active Hx of CABG 1 Confirmed 2016 Active Hyperlipidemia Confirmed Active Hypertensive heart disease Confirmed Active Mild intermittent asthma Confirmed Active Obese class I Confirmed Active Class 1 obesity with body mass index (BMI) of 30.0 to 30.9 in adult Confirmed Active WENDIE (obstructive sleep apnea) Confirmed Active Prediabetes Confirmed Active 1Surgery in [place], unknown #vessels Social History Social History Type Response Smoking Status Former smoker, quit more than 30 days ago entered on: 10/20/22 Sex Patient Care team information Care Team Personnel Name: Zoie Santiago RN Position: [facility] RN Member Role: Primary Care Nurse Name: Linda Grajeda NP Position: [facility] PCO Associate Professional Member Role: PCP Address: Address: [address] [place] [address]- Care Team Related Persons Name: KALEN BECKER Address: home [address] [facility] [address] [place] [address] Name: KALEN BUSH Address: home [address] [place] [address] Name: WILLIAM MENDEZ
--- OUTSIDE RECORDS SUMMARY | 2023-12-29 03:51 | XMS_ITS | Continuity of Care Document ---
Author Organization [facility] Primary [facility] [place] Address [address] [place] [address]- Care Team Providers Care Roof Truss Builder Name Role Phone Taras CRUZ, Linda Watkins Primary Care Physician Encounter [facility] Date(s): 01/29/21 - 02/28/21 [facility] [place] [address] [place], [place] [address] Attending Physician: Haresh Jeffrey Admitting Physician: Haresh [...] 09/24/20 16:12:00 EST, Route to Pharmacy Electronically, [facility][id number], 168, cm, 09/23/20 10:39:00 EST, Height, 92.2, kg, 01/29/19 21:34:00 RASH[facility]TDr... Start Date: 09/24/20 Stop Date: 09/19/21 Status: Ordered atorvastatin 80 mg oral tablet 1 tablet = 80 mg, By Mouth, Daily, replace 40 mg Rx, # 30 tablet, 11 Refills, Maintenance, 218:47:00 EST, Tablet, [facility][id number], Partial fill upon patient request if the prescription is for a schedule II opioid drug., 168, cm, .. Start Date: 09/25/20 Stop Date: 09/20/21 Status: Ordered losartan 25 mg oral tablet 25 mg, 1, tablet, By Mouth, Daily, Call if any significant lightheadedness, # 30 tablet, Refills 11, Tot. Refills 11, Maintenance, 09/24/20 16:12:00 EST, Route to Pharmacy Electronically, [facility][id number], 168, cm, 09/23/20 10:39:00 EST, He... Start Date: 09/24/20 Stop Date: 09/19/21 Status: Ordered metoprolol 25 mg oral tablet 25 mg, 1, tablet, By Mouth, Daily, # 30 tablet, Refills 11, Tot. Refills 11, Maintenance, 09/24/20 16:12:00 EST, Route to Pharmacy Electronically, [facility][id number], 168, cm, 09/23/20 10:39:00 EST, Height, 92.2, kg, 01/29/19 21:34:00 EDTDr... Start Date: 09/24/20 Stop Date: 09/19/21 Status: Ordered Problem List Condition Effective Dates Status Health Status Inform ant CAD (coronary artery disease ), [place] coronary artery(Confirmed) Active Chronic GERD(Confirmed) Active Hx of CABG(Confirmed) 2015 Active Hyperlipidemia(Confirmed) Active Hypertensive heart disease(Confirmed) Active Mild intermittent asthma(Confirmed) Active WENDIE (obstructive sleep apnea)(Confirmed) Active Prediabetes(Confirmed) Active 1Surgery in [place], unknown #vessels Social History Social History Type Response Tobacco Tobacco user in hous ehold: No. Type: Cigarettes. Tobacco use times per day: Former smoker, 5 cigarettes a day. Started at age: 15 Years. Stopped at age: 22 Years. Sex
--- OUTSIDE RECORDS SUMMARY | 2023-12-29 03:51 | XMS_ITS | Continuity of Care Document ---
Author Organization [facility] ter Address [address] [place] [address]- Care Team Providers Care Cancer Spec Name Role Phone Taras CRUZ, Linda Watkins Primary Care Physician [place] [facility] [place] 07/13/[address] [address]- Encounter Diagnosis Hematuria(Final) - 07/13/22 Discharge Disposition: A-D/C Home Attending Physician: Laxmi Vicente DO Admitting Physician: Laxmi Vicente DO Referring Physician: Not on Staff, Referring MD [...] 10/07/21 9:14:00 EST, Route to Pharmacy Electronically, [id number], [facility]/pharmacy #[id number], 169, cm, 07/18/21 7:10:00 EST, Height, 87.7, kg... Start Date: 10/07/21 Status: Ordered aspirin 81 mg oral delayed release tablet 81 mg, 1, tablet, By Mouth, Daily, # 90 tablet, Refills 1, Tot. Refills 1, Maintenance, 10/16/21 8:06:00 EST, Route to Pharmacy Electronically, [facility]/pharmacy #1130, 169, cm, 07/18/21 7:10:00 EST, Height, 87.7, kg, 07/17/21 16:43:00 EST, Dry Weight Start Date: 10/16/21 Status: Ordered atorvastatin 80 mg oral tablet 1 tablet, By Mouth, Daily, # 90 tablet, 1 Refills, Maintenance, 04/13/22 4:52:00 EDT, [facility]/pharmacy #1130, 168, cm, 03/22/22 10:18:00 EDT, Height, 86.5, kg, 11/16/21 11:39:00 EDT, Dry Weight Start Date: 04/13/22 Status: Ordered losartan 25 mg oral tablet 1 tablet, By Mouth, Daily, # 90 tablet, 1 Refills, Maintenance, 04/13/22 4:54:00 EDT, [facility]/pharmacy #1130, 168, cm, 03/22/22 10:18:00 EDT, Height, 86.5, kg, 11/16/21 11:39:00 EDT, Dry Weight Start Date: 04/13/22 Status: Ordered Metoprolol Tartrate 25 mg oral tablet 1 tablet, By Mouth, Daily, # 90 tablet, 1 Refills, Maintenance, 04/13/22 4:54:00 EDT, [facility]/pharmacy #1130, 168, cm, 03/22/22 10:18:00 EDT, Height, 86.5, kg, 11/16/21 11:39:00 EDT, Dry Weight Start Date: 04/13/22 Status: Ordered morphine 15 mg oral tablet, immediate release 1 tablet = 15 mg, By Mouth, Every 6 hours, PRN for pain, for 2 days, # 8 tablet, 0 Refills, Acute 07/15/22 12:18:00 EST, 07/13/22 12:18:00 EST, Tablet, Partial fill upon patient request if the prescription is for a schedule II opioid drug. Start Date: 07/13/22 Stop Date: 07/15/22 Status: Ordered omeprazole 40 mg oral enteric coated capsule 1 capsule = 40 mg, By Mouth, Daily, # 90 capsule, 1 Refills, Maintenance, 10/07/21 9:12:00 EST, EC Capsule, [facility], Partial fill upon patient request if the prescription is for a scheduleII opioid drug., 169, cm, 07/18/21 7:10:00 EST, Hei... Start Date: 10/07/21 Status: Ordered ondansetron 4 mg oral tablet 1 tablet = 4 mg, By Mouth, Every 8 hours, PRN Nausea & Vomiting, for 3 days, # 10 tablet, 0 Refills, Acute 07/16/22 12:17:00 EST, 07/13/22 12:17:00 EST, Tablet, [facility]/pharmacy #1130, Partial fill upon patient request if the prescription is for a schedul... Start Date: 07/13/22 Stop Date: 07/16/22 Status: Ordered Symbicort 80mcg/4.5mcg Inhaler 2, puffs, Inhalation, 2 times a day, # 3 each, Refills 1, Tot. Refills 1, Maintenance, 11/03/21 9:44:00 EST, Aerosol, Route to Pharmacy Electronically, [id number], [facility], 169, cm, 07/18/21 7:10:00 EST, Height, 87... Start Date: 11/03/21 Status: Ordered tamsulosin 0.4 mg oral capsule 0.4 mg, 1, capsule, By Mouth, Daily, # 30 capsule, Refills 0, Tot. Refills 0, Maintenance, 07/13/2212:18:00 EST, Route to Pharmacy Electronically, [facility]/pharmacy #[id number], Partial fill upon patient request if the prescription is for a schedule II opioid d... Start Date: 07/13/22 Status: Ordered Zetia 10 mg oral tablet 1 tablet = 10 mg, By Mouth, Daily, # 30 tablet, 5 Refills, Maintenance, 04/05/22 18:32:00 EDT, Tablet, [facility], Partial fill upon patient request if the prescription is for a schedule II opioid drug., 168, cm, 03/22/22 10:18:00 EDT, Height,... Start Date: 04/05/22 Status: Ordered Zetia 10 mg oral tablet 1 tablet = 10 mg, By Mouth, Daily, # 90 tablet, 0 Refills, Maintenance, 04/06/22 16:17:00 EDT, Tablet, [facility]/pharmacy #1130, Partial fill upon patient request if the prescription is for a schedule II opioid drug., 168, cm, 03/22/22 10:18:00 EDT, Height,... Start Date: 04/06/22 Status: Ordered Problem List Condition Confirmation Course Effective Dates Status H ealth Status Informant CAD (coronary artery disease), [place] coronary artery Confirmed Active Chronic GERD Confirmed Active Hx of CABG 1 Confirmed 2016 Active Hyperlipidemia Confirmed Active Hypertensive heart disease Confirmed Active Mild intermittent asthma Confirmed Active Obese class I Confirmed Active Class 1 obesity with body mass index (BMI) of 30.0 to 30.9 in adult Confirmed Active WENDIE (obstructive sleep apnea) Confirmed Active Prediabetes Confirmed Active 1[facility]gery in [place], unknown #vessels Vital Signs Most recent to oldest [Reference Range]: 1 2 3 Weight 89 kg (07/13/22 12:30 PM) 89 kg (07/13/22 6:35 AM) Oxygen Saturation [94-100 %] 98 % (07/13/22 12:30 PM) 100 % (07/13/22 10:33 AM) 99 % (07/13/22 8:44 AM) Pulse Rate [55-90 bpm] 82 bpm (07/13/22 12:30 PM) 80 bpm (07/13/22 10:33 AM) 60 bpm (07/13/22 8:44 AM) Blood Pressure [90-138/55-84 mm Hg] 140/82mm Hg *H* (07/13/22 12:30 PM) 144/101mm Hg *H* (07/13/22 10:33 AM) 141/84mm Hg *H* (07/13/22 8:44 AM) Respiratory Rate [16-30 br/min] 18 br/min (07/13/22 12:30 PM) 16 br/min (07/13/22 8:44 AM) 16 br/min (07/13/22 6:35 AM) Temperature [96.8-100.4 DegF] 98.3 DegF (07/13/22 12:30 PM) 98.3 DegF (07/13/22 10:33 AM) 98.2 DegF (07/13/22 8:44 AM) Mode of Delivery (Oxygen) Room air (07/13/22 12:30 PM) Room air (07/13/22 10:33 AM) Room air (07/13/22 8:44 AM) Blood pressure sites Arm, right (07/13/22 12:30 PM) Arm, right (07/13/22 10:33 AM) Arm, left (07/13/22 8:44 AM) Temperature Route Oral (07/13/22 12:30 PM) Oral (07/13/22 10:33 AM) Oral (07/13/22 8:44 AM) Weight Obtained Via Patient/family state d (07/13/22 6:35 AM) Social History Social History Type Response Tobacco Tobacco user in hous ehold: No. Type: Cigarettes. Tobacco use times per day: Former smoker, 5 cigarettes a day. Started at age: 15 Years. Stopped at age: 22 Years. Sex Note * Laxmi Vicente DO: PERFORM, SIGN, VERIFY Event Display: Patient Education Handout Authored Date: [id number] * Laxmi Vicente DO: PERFORM Event Display: Patient Education Leaflets Authored Date: [id number] Blood in the Urine ?? [id number] Colette en la orina La colette en la orina (hematuria) tiene muchas causas posibles. Si se presenta despu??s de sunshine lesi??n (por ejemplo, por sunshine ca??da o un accidente de autom??jonel), suele ser sunshine se??al de hematoma en el ri?n o en la vejiga. Las causas m??dicas comunes que pueden hacer que haya colette en la orina son las siguientes: infecci??n de las v??as urinarias, c??lculos renales (piedras en los ri??ones), inflamaci??n, tumores, u otras enfermedades del ri?n o la vejiga. La menstruaci??n puede hacer que aparezca colette en la muestra de orina, aunque no provenga de las v??as urinarias. Si s??lo hay presente sunshine denice??a cantidad de colette, aparecer?? en la prueba de orina, aunque la orina se ajay de color amarillento y no bartholomew ni rojizo. Frederika puede ocurrir en cualquiera de los casos antes mencionados, as?? mike cuando se guerra practicado ejercicio f??sico muy maurice o se tiene fiebre lizzie. En susan yecenia, es posible que el proveedor de atenci??n m??dica le solicite repetir la pruebade orina otro d??a. All?? podr??n brian si todav??a hay colette en la orina. De ser as??, se pueden realizar otras pruebas para establecer la causa. Cuidados en el hogar Siga estas instrucciones de cuidados en la casa: ??? Si el aspecto de la orina no demuestra que haya presencia de colette (la orina no es rosada, amarronada ni rojiza), entonces no es necesario que restrinja zhang actividades de ninguna forma. ??? Si puede brian la presencia de colette en la orina, descanse y no realice actividades agotadoras hasta ward pr??xima prueba. No tome aspirina, medicamentos anticoagulantes, medicamentos antiplaquetarios ni medicamentos antiinflamatorios, tales mike ibuprofenoy naproxeno. Estos medicamentos aligeran la colette y pueden aumentar el sangrado. Llame a ward proveedor de atenci??n m??dica para hablar sobre el uso de estos medicamentos. ?? Seguimiento Programe citas de seguimiento con ward proveedor de atenci??n m??dica, o seg??n le indiquen. Si tuvo sunshine lesi??n y tuvo colette en la orina, deber?? repetir la prueba de orina en 1 o 2??d??as. P??ngase en contacto con ward proveedor para esta prueba. Un radi??logo evaluar?? las radiograf??as que le hayan hecho. Le informar??n de los nuevos resultados que puedan afectar la atenci??n m??dica que necesita. ?? Cu??ndo buscar atenci??n m??dica Llame a ward proveedor de atenci??n m??dica de inmediato si presenta alguno de estos s??ntomas: ??? Colette de color marcus vivo o co??gulos de colette en la orina (si es un s??ntoma nuevo). ??? Debilidad,mareos o desmayos. ??? Dolor nuevo en la quiana, el abdomen o la espalda. ??? Fiebre de 100.4?F (38?C) o m??s lizzie, o seg??n le indique el proveedor. ??? V??mitos persistentes. ??? Sangrado de la nariz o las enc??as; o se le hacen hematomas (moretones) con facilidad. ?? Last Reviewed Date: 2019 ?? [id number] [employer]. Todos los derechos reservados. Esta informaci??n no pretende sustituir la atenci??n m??dica profesional. S??lo ward m??dico puede diagnosticar y tratar un problema de barbara. ?? Patient Care team information Care Team Personnel Name: Zoie Santiago RN Position: [facility] RN Member Role: Primary Care Nurse Name: Linda Grajeda NP Position: [facility] PCO Associate Professional Member Role: PCP Address: Address: [address] [place] [address]- Name: Laxmi Vicente DO Position: [facility] ED Medicine MD Member Role: Admitting Physician Address: Address: [address] [place] [address]- Care Team Related Persons Name: KALEN BECKER Address: home [address] [place] [address] Name: KALEN BUSH Address: home [address] [place] [address] Name: WILLIAM STINSON
--- OUTSIDE RECORDS SUMMARY | 2023-12-29 03:51 | XMS_ITS | Continuity of Care Document ---
Author Organization [facility] Address [address] [place] [address] [address] [place] [address]- Care Team Providers Care Project Management Manager Name Role Phone Taras CRUZ, Linda Watkins Primary Care Physician ( [phone] Encounter [facility] Date(s): 02/12/21 - 03/14/[address] [place], [place] [address] Attending Physician: Haresh Jeffrey Admitting Physician: AdmHaresh licea Referring Physician: AdmtrHaresh Allergies, Adverse Reactions, Alerts [...] 09/24/20 16:12:00 EST, Route to Pharmacy Electronically, [facility] #[id number], 168, cm, 09/23/20 10:39:00 EST, Height, 92.2, kg, 01/29/19 21:34:00 EDTDr... Start Date: 09/24/20 Stop Date: 09/19/21 Status: Ordered atorvastatin 80 mg oral tablet 1 tablet = 80 mg, By Mouth, Daily, replace 40 mg Rx, # 30 tablet, 11 Refills, Maintenance, 218:47:00 EST, Tablet, [facility] #[id number], Partial fill upon patient request if the prescription is for a schedule II opioid drug., 168, cm, .. Start Date: 09/25/20 Stop Date: 09/20/21 Status: Ordered losartan 25 mg oral tablet 25 mg, 1, tablet, By Mouth, Daily, Call if any significant lightheadedness, # 30 tablet, Refills 11, Tot. Refills 11, Maintenance, 09/24/20 16:12:00 EST, Route to Pharmacy Electronically, [facility] #[id number], 168, cm, 09/23/20 10:39:00 EST, He... Start Date: 09/24/20 Stop Date: 09/19/21 Status: Ordered metoprolol 25 mg oral tablet 25 mg, 1, tablet, By Mouth, Daily, # 30 tablet, Refills 11, Tot. Refills 11, Maintenance, 09/24/20 16:12:00 EST, Route to Pharmacy Electronically, [facility] #[id number], 168, cm, 09/23/20 10:39:00 EST, Height, 92.2, kg, 01/29/19 21:34:00 EDTDr... Start Date: 09/24/20 Stop Date: 09/19/21 Status: Ordered Problem List Condition Effective Dates Status Health Status Inform ant CAD (coronary artery disease ), [place] coronary artery(Confirmed) Active Chronic GERD(Confirmed) Active Hx of CABG(Confirmed) 2015 Active Hyperlipidemia(Confirmed) Active Hypertensive heart disease(Confirmed) Active Mild intermittent asthma(Confirmed) Active WENDIE (obstructive sleep apnea)(Confirmed) Active Prediabetes(Confirmed) Active 1Surgery in [place], unknown #vessels Social History Social History Type Response Tobacco Tobacco user in hous ehold: No. Type: Cigarettes. Tobacco use times per day: Former smoker, 5 cigarettes a day. Started at age: 15 Years. Stopped at age: 22 Years. Sex
--- OUTSIDE RECORDS SUMMARY | 2023-12-29 03:51 | XMS_ITS | Continuity of Care Document ---
Author Organization [facility] [place] Address [address] [place] [address]- Care Team Providers Care It Technical Support Specialist Name Role Phone Taras HEAD OF PARTNER DEVELOPMENT, Linda Watkins Primary Care Physician Encounter [facility] Date(s): 04/08/22 - 05/08/22 [facility] [address] [place] [address]- Allergies, Adverse Reactions, Alerts Substance Reaction Severity [...] 10/07/21 9:14:00 EST, Route to Pharmacy Electronically, [id number], [facility]/pharmacy #1130, 169, cm, 07/18/21 7:10:00 EST, Height, 87.7, kg... Start Date: 10/07/21 Status: Ordered aspirin 81 mg oral delayed release tablet 81 mg, 1, tablet, By Mouth, Daily, # 90 tablet, Refills 1, Tot. Refills 1, Maintenance, 10/16/21 8:06:00 EST, Route to Pharmacy Electronically, [facility]/pharmacy #1130, 169, cm, 07/18/21 7:10:00 EST, Height, 87.7, kg, 07/17/21 16:43:00 EST, Dry Weight Start Date: 10/16/21 Status: Ordered atorvastatin 80 mg oral tablet 1 tablet, By Mouth, Daily, # 90 tablet, 1 Refills, Maintenance, 04/13/22 4:52:00 EDT, [facility]/pharmacy #1130, 168, cm, 03/22/22 10:18:00 EDT, Height, 86.5, kg, 11/16/21 11:39:00 EDT, Dry Weight Start Date: 04/13/22 Status: Ordered losartan 25 mg oral tablet 1 tablet, By Mouth, Daily, # 90 tablet, 1 Refills, Maintenance, 04/13/22 4:54:00 EDT, [facility]/pharmacy #1130, 168, cm, 03/22/22 10:18:00 EDT, Height, 86.5, kg, 11/16/21 11:39:00 EDT, Dry Weight Start Date: 04/13/22 Status: Ordered Metoprolol Tartrate 25 mg oral tablet 1 tablet, By Mouth, Daily, # 90 tablet, 1 Refills, Maintenance, 04/13/22 4:54:00 EDT, [facility], 168, cm, 03/22/22 10:18:00 EDT, Height, 86.5, kg, 11/16/21 11:39:00 EDT, Dry Weight Start Date: 04/13/22 Status: Ordered omeprazole 40 mg oral enteric coated capsule 1 capsule = 40 mg, By Mouth, Daily, # 90 capsule, 1 Refills, Maintenance, 10/07/21 9:12:00 EST, EC Capsule, [facility]/pharmacy #1130, Partial fill upon patient request if the prescription is for a scheduleII opioid drug., 169, cm, 07/18/21 7:10:00 EST, Hei... Start Date: 10/07/21 Status: Ordered Symbicort 80mcg/4.5mcg Inhaler 2, puffs, Inhalation, 2 times a day, # 3 each, Refills 1, Tot. Refills 1, Maintenance, 11/03/21 9:44:00 EST, Aerosol, Route to Pharmacy Electronically, [id number], [facility], 169, cm, 07/18/21 7:10:00 EST, [...] 0 Refills, Maintenance, 04/06/22 16:17:00 EDT, Tablet, [facility], Partial fill upon patient request if the prescription is for a schedule II opioid drug., 168, cm, 03/22/22 10:18:00 EDT, Height,... Start Date: 04/06/22 Status: Ordered Problem List Condition Effective Dates Status Health Status Inform ant CAD (coronary artery disease ), [place] coronary artery(Confirmed) Active Chronic GERD(Confirmed) Active Hx of CABG(Confirmed) 2015 Active Hyperlipidemia(Confirmed) Active Hypertensive heart disease(Confirmed) Active Mild intermittent asthma(Confirmed) Active Obese class I(Confirmed) Active Class 1 obesity with body ma ss index (BMI) of 30.0 to 30.9 in adult(Confirmed) Active WENDIE (obstructive sleep apnea)(Confirmed) Active Prediabetes(Confirmed) Active 1Surgery in [place], unknown #vessels Social History Social History Type Response Tobacco Tobacco user in hous ehold: No. Type: Cigarettes. Tobacco use times per day: Former smoker, 5 cigarettes a day. Started at age: 15 Years. Stopped at age: 22 Years. Sex Care Team Personnel Name: Linda Grajeda NP Address: [address] [place] [address]
--- OUTSIDE RECORDS SUMMARY | 2023-12-29 03:51 | XMS_ITS | Continuity of Care Document ---
Author Organization [facility] [place] Address [address] [place] [address]- Care Team Providers Care Ore Storage Drier Name Role Phone Taras CRUZ, Linda Watkins Primary Care Physician Encounter [facility] Date(s): 09/11/20 - 01/09/21 [facility] [address] [place], [place] [address] Attending Physician: Linda Grajeda NP [...] 09/24/20 16:12:00 EST, Route to Pharmacy Electronically, [facility] #[id number], 168, cm, 09/23/20 10:39:00 EST, Height, 92.2, kg, 01/29/19 21:34:00 EDTDr... Start Date: 09/24/20 Stop Date: 09/19/21 Status: Ordered atorvastatin 80 mg oral tablet 1 tablet = 80 mg, By Mouth, Daily, replace 40 mg Rx, # 30 tablet, 11 Refills, Maintenance, :47:00 EST, Tablet, [facility] #[id number], Partial fill upon patient request if the prescription is for a schedule II opioid drug., 168, cm, .. Start Date: 09/25/20 Stop Date: 09/20/21 Status: Ordered losartan 25 mg oral tablet 25 mg, 1, tablet, By Mouth, Daily, Call if any significant lightheadedness, # 30 tablet, Refills 11, Tot. Refills 11, Maintenance, 09/24/20 16:12:00 EST, Route to Pharmacy Electronically, [facility][id number], 168, cm, 09/23/20 10:39:00 EST, Gabrielle. Start Date: 09/24/20 Stop Date: 09/19/21 Status: Ordered metoprolol 25 mg oral tablet 25 mg, 1, tablet, By Mouth, Daily, # 30 tablet, Refills 11, Tot. Refills 11, Maintenance, 09/24/20 16:12:00 EST, Route to Pharmacy Electronically, [facility] #[id number], 168, cm, 09/23/20 10:39:00 EST, Height, 92.2, kg, 01/29/19 21:34:00 EDTDr... Start Date: 09/24/20 Stop Date: 09/19/21 Status: Ordered Problem List Condition Effective Dates Status Health Status Inform ant CAD (coronary artery disease ), [place] coronary artery(Confirmed) Active Chronic GERD(Confirmed) Active Hx of CABG(Confirmed) 2015 Active Hyperlipidemia(Confirmed) Active Hypertensive heart disease(Confirmed) Active Mild intermittent asthma(Confirmed) Active WENDIE (obstructive sleep apnea)(Confirmed) Active Prediabetes(Confirmed) Active 1Surgery in [place], unknown #vessels Social History Social History Type Response Tobacco Tobacco user in hous ehold: No. Type: Cigarettes. Tobacco use times per day: Former smoker, 5 cigarettes a day. Started at age: 15 Years. Stopped at age: 22 Years. Sex
--- OUTSIDE RECORDS SUMMARY | 2023-12-29 03:51 | XMS_ITS | Continuity of Care Document ---
Author Organization [facility] [place] Address [address] [place] [address]- Care Team Providers Care Trimming Machine Set Up Operator Name Role Phone Taras SOLUTION STRATEGIST, Linda Watkins Primary Care Physician Encounter [facility] Date(s): 07/20/21 - 08/19/21 [facility] [address] [place], [place] [address] Allergies, Adverse Reactions, Alerts Substance Reaction Severity [...] 07/18/21 8:06:00 EST, Route to Pharmacy Electronically, [id number], [facility] 169, cm, 07/18/21 7:10:00 EST, Height, 87... Start Date: 07/18/21 Stop Date: 08/17/21 Status: Ordered aspirin 81 mg oral delayed release tablet 81 mg, 1, tablet, By Mouth, Daily, # 90 tablet, Refills 0, Tot. Refills 0, Maintenance, 07/18/21 8:06:00 EST, Route to Pharmacy Electronically, [facility] 169, cm, 07/18/21 7:10:00 EST, Height, 87.7, kg, 07/17/21 16:43:00 EST, Dry Weight Start Date: 07/18/21 Stop Date: 10/16/21 Status: Ordered atorvastatin 80 mg oral tablet 1 tablet = 80 mg, By Mouth, Daily, # 30 tablet, 0 Refills, Maintenance, 07/18/21 8:07:00 EST, Tablet, [facility], Partial fill upon patient request if the prescription is for a scheduleII opioid drug., 169, cm, 07/18/21 7:10:00 EST, Hei... Start Date: 07/18/21 Stop Date: 08/17/21 Status: Ordered losartan 25 mg oral tablet 25 mg, 1, tablet, By Mouth, Daily, # 30 tablet, Refills 0, Tot. Refills 0, Maintenance, 07/18/21 8:06:00 EST, Route to Pharmacy Electronically, [facility], 169, cm, 07/18/21 7:10:00 EST, Height, 87.7, kg, 07/17/21 16:43:00 EST, Dry Weight Start Date: 07/18/21 Stop Date: 08/17/21 Status: Ordered metoprolol 25 mg oral tablet 25 mg, 1, tablet, By Mouth, Daily, # 30 tablet, Refills 0, Tot. Refills 0, Maintenance, 07/18/21 8:08:00 EST, Route to Pharmacy Electronically, [facility], 169, cm, 07/18/21 7:10:00 EST, Height, 87.7, kg, 07/17/21 16:43:00 EST, Dry Weight Start Date: 07/18/21 Stop Date: 08/17/21 Status: Ordered omeprazole 40 mg oral enteric coated capsule 1 capsule = 40 mg, By Mouth, Daily, # 30 capsule, 0 Refills, Maintenance, 07/18/21 8:08:00 EST, EC Capsule, [facility], Partial fill upon patient request if the prescription is for a schedule II opioid drug., 169, cm, 07/18/21 7:10:00 ES... Start Date: 07/18/21 Stop Date: 08/17/21 Status: Ordered Symbicort 80mcg/4.5mcg Inhaler 2, puffs, Inhalation, 2 times a day, # 6.9 Gm, Refills 0, Tot. Refills 0, Maintenance, 07/18/21 8:08:00 EST, Aerosol, Route to Pharmacy Electronically, [id number], [facility], 169, cm, 07/18/21 7:10:00 EST, Heig... Start Date: 07/18/21 Status: Ordered Problem List Condition Effective Dates Status Health Status Inform ant CAD (coronary artery disease ), [place] coronary artery(Confirmed) Active Chronic GERD(Confirmed) Active Hx of CABG(Confirmed) 2015 Active Hyperlipidemia(Confirmed) Active Hypertensive heart disease(Confirmed) Active Mild intermittent asthma(Confirmed) Active Obese class I(Confirmed) Active WENDIE (obstructive sleep apnea)(Confirmed) Active Prediabetes(Confirmed) Active 1Surgery in [place], unknown #vessels Social History Social History Type Response Tobacco Tobacco user in hous ehold: No. Type: Cigarettes. Tobacco use times per day: Former smoker, 5 cigarettes a day. Started at age: 15 Years. Stopped at age: 22 Years. Sex
--- OUTSIDE RECORDS SUMMARY | 2023-12-29 03:51 | XMS_ITS | Continuity of Care Document ---
Author Organization [facility] Primary [facility] [place] Address [address] [place] [address]- Care Team Providers Care Dry Mill Operator Name Role Phone Taras PATROL JUDGE, Linda Watkins Primary Care Physician [id number] Date(s): 09/29/21 - 10/29/21 [facility] [place] [address] [place] [address]- Allergies, Adverse Reactions, Alerts Substance Reaction Severity Status penicillin Rash Active Immunizations Given and Recorded Vaccine Date Status Refusal Reason SARS-CoV-2 (COVID-19) mRNA-1273 vaccine 01/26/21 R ecorded SARS-CoV-2 (COVID-19) mRNA-1273 vaccine 12/29/20 R ecorded pneumococcal 23-valent vaccine 09/19/18 Given influenza virus vaccine, inactivated 09/19/18 Give n Problem List Condition Effective Dates Status Health Status Inform ant CAD (coronary artery disease ), [place] coronary artery(Confirmed) Active Chronic GERD(Confirmed) Active Hx of CABG(Confirmed) 2015 Active Hyperlipidemia(Confirmed) Active Hypertensive heart disease(Confirmed) Active Mild intermittent asthma(Confirmed) Active Obese class I(Confirmed) Active Class 1 obesity with body ma ss index (BMI) of 30.0 to 30.9 in adult(Confirmed) Active WENDIE (obstructive sleep apnea)(Confirmed) Active Prediabetes(Confirmed) Active 1Surgery in [place], unknown #vessels Social History Social History Type Response Tobacco Tobacco user in hous ehold: No. Type: Cigarettes. Tobacco use times per day: Former smoker, 5 cigarettes a day. Started at age: 15 Years. Stopped at age: 22 Years. Sex
--- OUTSIDE RECORDS SUMMARY | 2023-12-29 03:51 | XMS_ITS | Continuity of Care Document ---
Author Organization [facility] [place] Address [address] [place] [address]- Care Team Providers Care Organisational Psychologist Name Role Phone Taras CRUZ, Linda Watkins Primary Care Physician Encounter [facility] Date(s): 01/27/21 - 02/26/21 [facility] [place] [address] [place], [place] [address] Attending Physician: Haresh Jeffrey Admitting Physician: Haresh [...] 09/24/20 16:12:00 EST, Route to Pharmacy Electronically, [facility] #[id number], 168, cm, 09/23/20 10:39:00 EST, Height, 92.2, kg, 01/29/19 21:34:00 RASHIDTDr... Start Date: 09/24/20 Stop Date: 09/19/21 Status: Ordered atorvastatin 80 mg oral tablet 1 tablet = 80 mg, By Mouth, Daily, replace 40 mg Rx, # 30 tablet, 11 Refills, Maintenance, 218:47:00 EST, Tablet, [facility] #[id number], Partial fill upon patient request if the prescription is for a schedule II opioid drug., 168, cm, .. Start Date: 09/25/20 Stop Date: 09/20/21 Status: Ordered losartan 25 mg oral tablet 25 mg, 1, tablet, By Mouth, Daily, Call if any significant lightheadedness, # 30 tablet, Refills 11, Tot. Refills 11, Maintenance, 09/24/20 16:12:00 EST, Route to Pharmacy Electronically, [facility] #[id number], 168, cm, 09/23/20 10:39:00 EST, He... Start Date: 09/24/20 Stop Date: 09/19/21 Status: Ordered metoprolol 25 mg oral tablet 25 mg, 1, tablet, By Mouth, Daily, # 30 tablet, Refills 11, Tot. Refills 11, Maintenance, 09/24/20 16:12:00 EST, Route to Pharmacy Electronically, [facility] #[id number], 168, cm, 09/23/20 10:39:00 EST, Height, 92.2, kg, 01/29/19 21:34:00 EDTDr... Start Date: 09/24/20 Stop Date: 09/19/21 Status: Ordered Problem List Condition Effective Dates Status Health Status Inform ant CAD (coronary artery disease ), [place] coronary artery(Confirmed) Active Chronic GERD(Confirmed) Active Hx of CABG(Confirmed) 2015 Active Hyperlipidemia(Confirmed) Active Hypertensive heart disease(Confirmed) Active Mild intermittent asthma(Confirmed) Active WENDIE (obstructive sleep apnea)(Confirmed) Active Prediabetes(Confirmed) Active 1Surgery in [place], unknown #vessels Social History Social History Type Response Tobacco Tobacco user in hous ehold: No. Type: Cigarettes. Tobacco use times per day: Former smoker, 5 cigarettes a day. Started at age: 15 Years. Stopped at age: 22 Years. Sex
--- OUTSIDE RECORDS SUMMARY | 2023-12-29 03:51 | XMS_ITS | Continuity of Care Document ---
Author Organization [facility] Primary [facility] [place] Address [address] [place] [address]- Care Team Providers Care Reporter Anchor Name Role Phone Taras CRUZ, Linda Watkins Primary Care Physician Encounter [facility] Date(s): 10/26/21 - 11/25/21 [facility] [place] [address] [place] [address]- Attending Physician: Haresh Jeffrey Admitting Physician: AdmHaresh [...] 11/26/21 13:41:00 EDT, 11/16/21 13:41:00 EDT, Tablet, [facility]/pharmacy #[id number], Partial fill upon patient request if the prescription is for a schedule II opioid drug., 1 tablet... Start Date: 11/16/21 Stop Date: 11/26/21 Status: Ordered Problem List Condition Effective Dates Status Health Status Inform ant CAD (coronary artery disease ), [place] coronary artery(Confirmed) Active Chronic GERD(Confirmed) Active Hx of CABG(Confirmed) 2015 Active Hyperlipidemia(Confirmed) Active Hypertensive heart disease(Confirmed) Active Mild intermittent asthma(Confirmed) Active Obese class I(Confirmed) Active Class 1 obesity with body ma ss index (BMI) of 30.0 to 30.9 in adult(Confirmed) Active WENDIE (obstructive sleep apnea)(Confirmed) Active Prediabetes(Confirmed) Active 1Surgery in [place], unknown #vessels Social History Social History Type Response Tobacco Tobacco user in hous ehold: No. Type: Cigarettes. Tobacco use times per day: Former smoker, 5 cigarettes a day. Started at age: 15 Years. Stopped at age: 22 Years. Sex
--- OUTSIDE RECORDS SUMMARY | 2023-12-29 03:51 | XMS_ITS | Continuity of Care Document ---
Author Organization [facility] Primary Car [facility] [place] Address [address] [place] [address]- Care Team Providers Care Package Sorter Name Role Phone Taras CRUZ, Linda Watkins Primary Care Physician Encounter [facility] Date(s): 10/07/21 - 11/25/21 [facility] [place] [address] [place] [address]- Attending Physician: Linda Grajeda NP Allergies, Adverse [...] 11/26/21 13:41:00 EDT, 11/16/21 13:41:00 EDT, Tablet, [facility]/pharmacy #[id number], Partial fill upon patient request if the prescription is for a schedule II opioid drug., 1 tablet... Start Date: 11/16/21 Stop Date: 11/26/21 Status: Ordered Problem List Condition Effective Dates Status Health Status Inform ant CAD (coronary artery disease ), [place] coronary artery(Confirmed) Active Chronic GERD(Confirmed) Active Hx [...]
--- OUTSIDE RECORDS SUMMARY | 2023-12-29 03:51 | XMS_ITS | Continuity of Care Document ---
Author Organization [facility] Primary [facility] [place] Address [address] [place] [address]- Care Team Providers Care Beeswax Bleacher Name Role Phone Taras CRUZ, Linda Watkins Primary Care Physician [id number] Date(s): 06/22/19 - 10/20/19 [facility] Care [address] [address]- [facility] Attending Physician: Linda Grajeda NP Admitting Physician: Linda Grajeda NP Allergies, Adverse Reactions, Alerts Substance Reaction Severity Status penicillin Rash Active Immunizations Given and Recorded Vaccine Date Status Refusal Reason pneumococcal 23-valent vaccine 09/19/18 Given influenza virus vaccine, inactivated 09/19/18 Give n Problem List Condition Effective Dates Status Health Status Inform ant CAD (coronary artery disease ), [place] coronary artery(Confirmed) Active Chronic GERD(Confirmed) Active Hx [...]
--- OUTSIDE RECORDS SUMMARY | 2023-12-29 03:51 | XMS_ITS | Continuity of Care Document ---
Author Organization [facility] Primary [facility] [place] Address [address] [place] [address]- Care Team Providers Care Minute Clerk For Basic Traffic Name Role Phone Linda Grajeda NP Primary Care Physician ( [phone] Encounter [facility] Date(s): 09/20/19 - 09/30/19 [facility] [address] [address]- [facility] Attending Physician: Haresh Jeffrey Admitting Physician: Haresh Jeffrey Referring Physician: Haresh Jeffrey Allergies, Adverse Reactions, Alerts Substance Reaction Severity Status penicillin Rash Active Immunizations Given and Recorded Vaccine Date Status Refusal Reason pneumococcal 23-valent vaccine 09/19/18 Given influenza virus vaccine, inactivated 09/19/18 Give n Medications Zofran ODT 4 mg oral tablet, disintegrating 1 tablet = 4 mg, By Mouth, Every 4 hours, PRN Vomiting, # 12 tablet, 0 Refills, Maintenance, 01/29/19 22:45:21 EDT Start Date: 01/29/19 Status: Ordered Problem List Condition Effective Dates Status Health Status Inform ant CAD (coronary artery disease ), [place] coronary artery(Confirmed) Active Chronic GERD(Confirmed) Active Hx of CABG(Confirmed) 2015 Active Hyperlipidemia(Confirmed) Active Hypertensive heart disease(Confirmed) Active Mild intermittent asthma(Confirmed) Active WENDIE (obstructive sleep apnea)(Confirmed) Active Prediabetes(Confirmed) Active 1Surgery in [place], unknown #vessels Social History Social History Type Response Smoking Status Former smoker, quit more than 30 days ago; Tobacco user in household: No entered on: 08/28/18 Sex
--- OUTSIDE RECORDS SUMMARY | 2023-12-29 03:51 | XMS_ITS | Continuity of Care Document ---
Author Organization [facility] Primary [facility] [place] Address [address] [place] [address]- Care Team Providers Care Cyber Threat Analyst Name Role Phone Taras CRUZ, Linda Watkins Primary Care Physician Encounter [facility] Date(s): 01/09/21 - 02/08/21 [facility] [place] [address] [place], [place] [address] Allergies, Adverse Reactions, Alerts Substance Reaction [...] 09/24/20 16:12:00 EST, Route to Pharmacy Electronically, [facility] #[id number], 168, cm, 09/23/20 10:39:00 EST, Height, 92.2, kg, 01/29/19 21:34:00 EDTDr... Start Date: 09/24/20 Stop Date: 09/19/21 Status: Ordered atorvastatin 80 mg oral tablet 1 tablet = 80 mg, By Mouth, Daily, replace 40 mg Rx, # 30 tablet, 11 Refills, Maintenance, :47:00 EST, Tablet, [facility] #[id number], Partial fill upon patient request if the prescription is for a schedule II opioid drug., 168, cm, .. Start Date: 09/25/20 Stop Date: 09/20/21 Status: Ordered losartan 25 mg oral tablet 25 mg, 1, tablet, By Mouth, Daily, Call if any significant lightheadedness, # 30 tablet, Refills 11, Tot. Refills 11, Maintenance, 09/24/20 16:12:00 EST, Route to Pharmacy Electronically, [facility] #[id number], 168, cm, 09/23/20 10:39:00 EST, Gabrielle. Start Date: 09/24/20 Stop Date: 09/19/21 Status: Ordered metoprolol 25 mg oral tablet 25 mg, 1, tablet, By Mouth, Daily, # 30 tablet, Refills 11, Tot. Refills 11, Maintenance, 09/24/20 16:12:00 EST, Route to Pharmacy Electronically, [facility] #[id number], 168, cm, 09/23/20 10:39:00 EST, Height, 92.2, kg, 01/29/19 21:34:00 EDTDr... Start Date: 09/24/20 Stop Date: 09/19/21 Status: Ordered Problem List Condition Effective Dates Status Health Status Inform ant CAD (coronary artery disease ), [place] coronary artery(Confirmed) Active Chronic GERD(Confirmed) Active Hx of CABG(Confirmed) 2015 Active Hyperlipidemia(Confirmed) Active Hypertensive heart disease(Confirmed) Active Mild intermittent asthma(Confirmed) Active WENDIE (obstructive sleep apnea)(Confirmed) Active Prediabetes(Confirmed) Active 1Surgery in [place], unknown #vessels Social History Social History Type Response Tobacco Tobacco user in [facility] ehold: No. Type: Cigarettes. Tobacco use times per day: Former smoker, 5 cigarettes a day. Started at age: 15 Years. Stopped at age: 22 Years. Sex
--- OUTSIDE RECORDS SUMMARY | 2023-12-29 03:51 | XMS_ITS | Continuity of Care Document ---
Author Organization [facility] Primary [facility] [place] Address [address] [place] [address]- Care Team Providers Care Industrial Cafeteria Manager Name Role Phone Taras GERIATRIC AIDE, Linda Wtakins Primary Care Physician Encounter [facility] Date(s): 11/16/22 - 12/16/22 [facility] [place] [address] [place] [address]- Allergies, Adverse Reactions, Alerts Substance Reaction Severity [...] 10/07/21 9:14:00 EST, Route to Pharmacy Electronically, [id number], [facility]/pharmacy #[id number], 169, cm, 07/18/21 7:10:00 EST, Height, 87.7, kg... Start Date: 10/07/21 Status: Ordered aspirin 81 mg oral delayed release tablet 81 mg, 1, tablet, By Mouth, Daily, # 90 tablet, Refills 3, Tot. Refills 3, Maintenance, 10/20/22 11:35:00 EST, Route to Pharmacy Electronically, [facility]/pharmacy #[id number], 168, cm, 10/20/22 10:58:00 EST, Height, 86.5, kg, 11/16/21 11:39:00 EDT, Dry Weight Start Date: 10/20/22 Status: Ordered atorvastatin 80 mg oral tablet 1 tablet, By Mouth, Daily, # 90 tablet, 3 Refills, Maintenance, 10/20/22 11:34:00 EST, [facility]/pharmacy#[id number], 168, cm, 10/20/22 10:58:00 EST, Height, 86.5, kg, 11/16/21 11:39:00 EDT, Dry Weight Start Date: 10/20/22 Status: Ordered losartan 25 mg oral tablet 1 tablet, By Mouth, Daily, # 90 tablet, 3 Refills, Maintenance, 10/20/22 11:34:00 EST, [facility]/pharmacy#[id number], 168, cm, 10/20/22 10:58:00 EST, Height, 86.5, kg, 11/16/21 11:39:00 EDT, Dry Weight Start Date: 10/20/22 Status: Ordered metoprolol 25 mg oral tablet, extended release 25 mg, 1, tablet, By Mouth, Daily, # 90 tablet, Refills 3, Tot. Refills 3, Maintenance, 10/20/22 11:34:00 EST, Route to Pharmacy Electronically, [facility]/pharmacy #[id number], Partial fill upon patient request if the prescription is for a schedule II opioid drug... Start Date: 10/20/22 Status: Ordered omeprazole 40 mg oral enteric coated capsule 1 capsule, By Mouth, Daily, # 90 capsule, 1 Refills, Maintenance, 08/17/22 11:12:00 EST, [facility] STORE [id number], 168, cm, 03/22/22 10:18:00 EDT, Height, 86.5, kg, 11/16/21 11:39:00 EDT, Dry Weight Start Date: 08/17/22 Status: Ordered Symbicort 80mcg/4.5mcg Inhaler 2, puffs, Inhalation, 2 times a day, # 3 each, Refills 1, Tot. Refills 1, Maintenance, 11/03/21 9:44:00 EST, Aerosol, Route to Pharmacy Electronically, [id number], [facility]/pharmacy #[id number], 169, cm, 07/18/21 7:10:00 EST, Height, 87... Start Date: 11/03/21 Status: Ordered Zetia 10 mg oral tablet 1 tablet = 10 mg, By Mouth, Daily, # 90 tablet, 3 Refills, Maintenance, 10/20/22 11:39:00 EST, Tablet, [facility]/pharmacy #[id number], Partial fill upon patient request if the prescription is for a schedule II opioid drug., 168, cm, 10/20/22 10:58:00 EST, Height,... Start Date: 10/20/22 Status: Ordered Problem List Condition Confirmation Course Effective Dates Status H ealth Status Informant CAD (coronary artery disease), [place] coronary artery Confirmed Active Epilepsy Confirmed Active Chronic GERD Confirmed Active Hx of CABG 1 Confirmed 2016 Active Hyperlipidemia Confirmed Active Hypertensive heart disease Confirmed Active Mild intermittent asthma Confirmed Active Obese class I Confirmed Active Class 1 obesity with body mass index (BMI) of 30.0 to 30.9 in adult Confirmed Active WENDIE (obstructive sleep apnea) Confirmed Active Prediabetes Confirmed Active 1Surgery in [place], unknown #vessels Social History Social History Type Response Smoking Status Former smoker, quit more than 30 days ago entered on: 10/20/22 Sex Patient Care team information Care Team Personnel Name: Zoie Santiago RN Position: [facility] RN Member Role: Primary Care Nurse Name: Linda Grajeda NP Position: [facility] PCO Associate Professional Member Role: PCP Address: Address: [address] [place] [address]- Care Team Related Persons Name: KALEN BECKER Address: home [address] [place] [address] Name: KALEN BUSH Address: home [address] [place] [address] Name: WILLIAM STINSON
--- OUTSIDE RECORDS SUMMARY | 2023-12-29 03:51 | XMS_ITS | Continuity of Care Document ---
Author Organization [facility] Primary [facility] [place] Address [address] [place] [address]- Care Team Providers Care Regulatory Law Specialist Name Role Phone Taras GENERAL SERVICE TECHNICIAN, Linda Watkins Primary Care Physician Encounter [facility] Date(s): 07/22/21 - 08/21/21 [facility] [place] [address] [place], [place] [address] Allergies, Adverse Reactions, Alerts Substance Reaction Severity [...] 07/18/21 8:06:00 EST, Route to Pharmacy Electronically, [id number], [facility] 169, cm, 07/18/21 7:10:00 EST, Height, 87... Start Date: 07/18/21 Stop Date: 08/17/21 Status: Ordered aspirin 81 mg oral delayed release tablet 81 mg, 1, tablet, By Mouth, Daily, # 90 tablet, Refills 0, Tot. Refills 0, Maintenance, 07/18/21 8:06:00 EST, Route to Pharmacy Electronically, [facility] 169, cm, 07/18/21 7:10:00 EST, Height, 87.7, kg, 07/17/21 16:43:00 EST, Dry Weight Start Date: 07/18/21 Stop Date: 10/16/21 Status: Ordered atorvastatin 80 mg oral tablet 1 tablet = 80 mg, By Mouth, Daily, # 30 tablet, 0 Refills, Maintenance, 07/18/21 8:07:00 EST, Tablet, [facility], Partial fill upon patient request if the prescription is for a scheduleII opioid drug., 169, cm, 07/18/21 7:10:00 EST, Hei... Start Date: 07/18/21 Stop Date: 08/17/21 Status: Ordered losartan 25 mg oral tablet 25 mg, 1, tablet, By Mouth, Daily, # 30 tablet, Refills 0, Tot. Refills 0, Maintenance, 07/18/21 8:06:00 EST, Route to Pharmacy Electronically, [facility], 169, cm, 07/18/21 7:10:00 EST, Height, 87.7, kg, 07/17/21 16:43:00 EST, Dry Weight Start Date: 07/18/21 Stop Date: 08/17/21 Status: Ordered metoprolol 25 mg oral tablet 25 mg, 1, tablet, By Mouth, Daily, # 30 tablet, Refills 0, Tot. Refills 0, Maintenance, 07/18/21 8:08:00 EST, Route to Pharmacy Electronically, [facility], 169, cm, 07/18/21 7:10:00 EST, Height, 87.7, kg, 07/17/21 16:43:00 EST, Dry Weight Start Date: 07/18/21 Stop Date: 08/17/21 Status: Ordered omeprazole 40 mg oral enteric coated capsule 1 capsule = 40 mg, By Mouth, Daily, # 30 capsule, 0 Refills, Maintenance, 07/18/21 8:08:00 EST, EC Capsule, [facility], Partial fill upon patient request if the prescription is for a schedule II opioid drug., 169, cm, 07/18/21 7:10:00 ES... Start Date: 07/18/21 Stop Date: 08/17/21 Status: Ordered Symbicort 80mcg/4.5mcg Inhaler 2, puffs, Inhalation, 2 times a day, # 6.9 Gm, Refills 0, Tot. Refills 0, Maintenance, 07/18/21 8:08:00 EST, Aerosol, Route to Pharmacy Electronically, [id number], [facility], 169, cm, 07/18/21 7:10:00 EST, Heig... Start Date: 07/18/21 Status: Ordered Problem List Condition Effective Dates Status Health Status Inform ant CAD (coronary artery disease ), [place] coronary artery(Confirmed) Active Chronic GERD(Confirmed) Active Hx of CABG(Confirmed) 2015 Active Hyperlipidemia(Confirmed) Active Hypertensive heart disease(Confirmed) Active Mild intermittent asthma(Confirmed) Active Obese class I(Confirmed) Active WENDIE (obstructive sleep apnea)(Confirmed) Active Prediabetes(Confirmed) Active 1Surgery in [place], unknown #vessels Social History Social History Type Response Tobacco Tobacco user in hous ehold: No. Type: Cigarettes. Tobacco use times per day: Former smoker, 5 cigarettes a day. Started at age: 15 Years. Stopped at age: 22 Years. Sex
--- OUTSIDE RECORDS SUMMARY | 2023-12-29 03:51 | XMS_ITS | Continuity of Care Document ---
Author Organization [facility] Primary Car [facility] [place] Address [address] [place] [address]- Care Team Providers Care Snow Ranger Name Role Phone Taras AGRICULTURE INTERN, Linda Watkins Primary Care Physician Encounter [facility] Date(s): 02/05/21 - 03/07/21 [facility] Primary Care [place] [address] [place] [address]- Allergies, Adverse Reactions, Alerts Substance Reaction Severity [...] 09/24/20 16:12:00 EST, Route to Pharmacy Electronically, [facility] #[id number], 168, cm, 09/23/20 10:39:00 EST, Height, 92.2, kg, 01/29/19 21:34:00 EDTDr... Start Date: 09/24/20 Stop Date: 09/19/21 Status: Ordered atorvastatin 80 mg oral tablet 1 tablet = 80 mg, By Mouth, Daily, replace 40 mg Rx, # 30 tablet, 11 Refills, Maintenance, 218:47:00 EST, Tablet, [facility] #[id number], Partial fill upon patient request if the prescription is for a schedule II opioid drug., 168, cm, .. Start Date: 09/25/20 Stop Date: 09/20/21 Status: Ordered losartan 25 mg oral tablet 25 mg, 1, tablet, By Mouth, Daily, Call if any significant lightheadedness, # 30 tablet, Refills 11, Tot. Refills 11, Maintenance, 09/24/20 16:12:00 EST, Route to Pharmacy Electronically, [facility] #[id number], 168, cm, 09/23/20 10:39:00 EST, He... Start Date: 09/24/20 Stop Date: 09/19/21 Status: Ordered metoprolol 25 mg oral tablet 25 mg, 1, tablet, By Mouth, Daily, # 30 tablet, Refills 11, Tot. Refills 11, Maintenance, 09/24/20 16:12:00 EST, Route to Pharmacy Electronically, [facility] #[id number], 168, cm, 09/23/20 10:39:00 EST, Height, 92.2, kg, 01/29/19 21:34:00 EDTDr... Start Date: 09/24/20 Stop Date: 09/19/21 Status: Ordered Problem List Condition Effective Dates Status Health Status Inform ant CAD (coronary artery disease ), [place] coronary artery(Confirmed) Active Chronic GERD(Confirmed) Active Hx of CABG(Confirmed) 2015 Active Hyperlipidemia(Confirmed) Active Hypertensive heart disease(Confirmed) Active Mild intermittent asthma(Confirmed) Active WENDIE (obstructive sleep apnea)(Confirmed) Active Prediabetes(Confirmed) Active 1Surgery in [place], unknown #vessels Social History Social History Type Response Tobacco Tobacco user in hous ehold: No. Type: Cigarettes. Tobacco use times per day: Former smoker, 5 cigarettes a day. Started at age: 15 Years. Stopped at age: 22 Years. Sex
--- OUTSIDE RECORDS SUMMARY | 2023-12-29 03:51 | XMS_ITS | Continuity of Care Document ---
Author Organization [facility] [place] Address [address] [place] [address]- Care Team Providers Care Control Electrician Name Role Phone Taras SEED TECHNICIAN, Linda Watkins Primary Care Physician Encounter [facility] Date(s): 08/17/21 - 09/16/21 [facility] [place] [address] [place], [place] [address] Attending Physician: Haresh Jeffrey Admitting Physician: AdmHaresh [...] 07/18/21 8:06:00 EST, Route to Pharmacy Electronically, [id number], [facility], 169, cm, 07/18/21 7:10:00 EST, Height, 87... Start Date: 07/18/21 Stop Date: 08/17/21 Status: Ordered aspirin 81 mg oral delayed release tablet 81 mg, 1, tablet, By Mouth, Daily, # 90 tablet, Refills 0, Tot. Refills 0, Maintenance, 07/18/21 8:06:00 EST, Route to Pharmacy Electronically, [facility], 169, cm, 07/18/21 7:10:00 EST, Height, 87.7, kg, 07/17/21 16:43:00 EST, Dry Weight Start Date: 07/18/21 Stop Date: 10/16/21 Status: Ordered atorvastatin 80 mg oral tablet 1 tablet = 80 mg, By Mouth, Daily, # 30 tablet, 0 Refills, Maintenance, 07/18/21 8:07:00 EST, Tablet, [facility], Partial fill upon patient request if the prescription is for a scheduleII opioid drug., 169, cm, 07/18/21 7:10:00 EST, Hei... Start Date: 07/18/21 Stop Date: 08/17/21 Status: Ordered losartan 25 mg oral tablet 25 mg, 1, tablet, By Mouth, Daily, # 30 tablet, Refills 0, Tot. Refills 0, Maintenance, 07/18/21 8:06:00 EST, Route to Pharmacy Electronically, [facility], 169, cm, 07/18/21 7:10:00 EST, Height, 87.7, kg, 07/17/21 16:43:00 EST, Dry Weight Start Date: 07/18/21 Stop Date: 08/17/21 Status: Ordered metoprolol 25 mg oral tablet 25 mg, 1, tablet, By Mouth, Daily, # 30 tablet, Refills 0, Tot. Refills 0, Maintenance, 07/18/21 8:08:00 EST, Route to Pharmacy Electronically, [facility], 169, cm, 07/18/21 7:10:00 EST, Height, 87.7, kg, 07/17/21 16:43:00 EST, Dry Weight Start Date: 07/18/21 Stop Date: 08/17/21 Status: Ordered omeprazole 40 mg oral enteric coated capsule 1 capsule = 40 mg, By Mouth, Daily, # 30 capsule, 0 Refills, Maintenance, 07/18/21 8:08:00 EST, EC Capsule, [facility], Partial fill upon patient request if the prescription is for a schedule II opioid drug., 169, cm, 07/18/21 7:10:00 ES... Start Date: 07/18/21 Stop Date: 08/17/21 Status: Ordered Symbicort 80mcg/4.5mcg Inhaler 2, puffs, Inhalation, 2 times a day, # 6.9 Gm, Refills 0, Tot. Refills 0, Maintenance, 07/18/21 8:08:00 EST, Aerosol, Route to Pharmacy Electronically, [id number], [facility], 169, cm, 07/18/21 7:10:00 EST, Heig... Start Date: 07/18/21 Status: Ordered Problem List Condition Effective Dates Status Health Status Inform ant CAD (coronary artery disease ), [place] coronary artery(Confirmed) Active Chronic GERD(Confirmed) Active Hx of CABG(Confirmed) 2015 Active Hyperlipidemia(Confirmed) Active Hypertensive heart disease(Confirmed) Active Mild intermittent asthma(Confirmed) Active Obese class I(Confirmed) Active WENDIE (obstructive sleep apnea)(Confirmed) Active Prediabetes(Confirmed) Active 1Surgery in [place], unknown #vessels Social History Social History Type Response Tobacco Tobacco user in hous ehold: No. Type: Cigarettes. Tobacco use times per day: Former smoker, 5 cigarettes a day. Started at age: 15 Years. Stopped at age: 22 Years. Sex
--- OUTSIDE RECORDS SUMMARY | 2023-12-29 03:51 | XMS_ITS | Continuity of Care Document ---
Author Organization [facility] [place] Address [address] [place] [address]- Care Team Providers Care Envelope Cutter Name Role Phone Taras CRUZ, Linda Watkins Primary Care Physician Encounter [facility] Date(s): 01/14/21 - 05/14/21 [facility] [place] [address] [place] [address]- Attending Physician: Chandan Merritt MD Referring Physician: Linda Grajeda NP Allergies, [...] 09/24/20 16:12:00 EST, Route to Pharmacy Electronically, [facility] #[id number], 168, cm, 09/23/20 10:39:00 EST, Height, 92.2, kg, 01/29/19 21:34:00 EDTDr... Start Date: 09/24/20 Stop Date: 09/19/21 Status: Ordered atorvastatin 80 mg oral tablet 1 tablet = 80 mg, By Mouth, Daily, replace 40 mg Rx, # 30 tablet, 11 Refills, Maintenance, 218:47:00 EST, Tablet, [facility] #[id number], Partial fill upon patient request if the prescription is for a schedule II opioid drug., 168, cm, . Start Date: 09/25/20 Stop Date: 09/20/21 Status: Ordered losartan 25 mg oral tablet 25 mg, 1, tablet, By Mouth, Daily, Call if any significant lightheadedness, # 30 tablet, Refills 11, Tot. Refills 11, Maintenance, 09/24/20 16:12:00 EST, Route to Pharmacy Electronically, [facility] #[id number], 168, cm, 09/23/20 10:39:00 EST, He... Start Date: 09/24/20 Stop Date: 09/19/21 Status: Ordered metoprolol 25 mg oral tablet 25 mg, 1, tablet, By Mouth, Daily, # 30 tablet, Refills 11, Tot. Refills 11, Maintenance, 09/24/20 16:12:00 EST, Route to Pharmacy Electronically, [facility] #[id number], 168, cm, 09/23/20 10:39:00 EST, Height, 92.2, kg, 01/29/19 21:34:00 EDTDr... Start Date: 09/24/20 Stop Date: 09/19/21 Status: Ordered Problem List Condition Effective Dates Status Health Status Inform ant CAD (coronary artery disease ), [place] coronary artery(Confirmed) Active Chronic GERD(Confirmed) Active Hx of CABG(Confirmed) 2015 Active Hyperlipidemia(Confirmed) Active Hypertensive heart disease(Confirmed) Active Mild intermittent asthma(Confirmed) Active WENDIE (obstructive sleep apnea)(Confirmed) Active Prediabetes(Confirmed) Active 1Surgery in [place], unknown #vessels Social History Social History Type Response Tobacco Tobacco user in hous ehold: No. Type: Cigarettes. Tobacco use times per day: Former smoker, 5 cigarettes a day. Started at age: 15 Years. Stopped at age: 22 Years. Sex
--- OUTSIDE RECORDS SUMMARY | 2023-12-29 03:51 | XMS_ITS | Continuity of Care Document ---
Author Organization [facility] [place] Address [address] [place] [address]- Care Team Providers Care Coater Slate Name Role Phone Linda Grajeda NP Primary Care Physician ( [phone] Encounter [facility] [id number] Date(s): 10/23/19 - 02/20/20 [facility] [address] [address]- [facility] Attending Physician: Linda Grajeda NP Admitting Physician: Linda Grajeda NP Allergies, Adverse Reactions, Alerts Substance Reaction Severity Status penicillin Rash Active Immunizations Given and Recorded Vaccine Date Status Refusal Reason pneumococcal 23-valent vaccine 09/19/18 Given influenza virus vaccine, inactivated 09/19/18 Give n Problem List Condition Effective Dates Status Health Status Inform ant CAD (coronary artery disease ), [place] coronary artery(Confirmed) Active Chronic GERD(Confirmed) Active Hx of CABG(Confirmed) 2015 Active Hyperlipidemia(Confirmed) Active Hypertensive heart disease(Confirmed) Active Mild intermittent asthma(Confirmed) Active WENDIE (obstructive sleep apnea)(Confirmed) Active Prediabetes(Confirmed) Active 1Surgery in [place], unknown #vessels Social History Social History Type Response Tobacco Tobacco user in hous ehold: No. Type: Cigarettes. Tobacco use times per day: Former smoker, 5 cigarettes a day. Started at age: 15 Years. Stopped at age: 22 Years. Sex
--- OUTSIDE RECORDS SUMMARY | 2023-12-29 03:51 | XMS_ITS | Continuity of Care Document ---
Author Organization [facility] [place] Address [address] [place] [address]- Care Team Providers Care Locket Maker Name Role Phone Taras CRUZ, Linda Watkins Primary Care Physician Encounter [facility] Date(s): 11/01/20 - 03/01/21 [facility] [place] [address] [place], [place] [address] Attending Physician: Luis Carlos Allred MD Allergies, Adverse Reactions, Alerts Substance Reaction [...] 09/24/20 16:12:00 EST, Route to Pharmacy Electronically, [facility] #[id number], 168, cm, 09/23/20 10:39:00 EST, Height, 92.2, kg, 01/29/19 21:34:00 EDTDr... Start Date: 09/24/20 Stop Date: 09/19/21 Status: Ordered atorvastatin 80 mg oral tablet 1 tablet = 80 mg, By Mouth, Daily, replace 40 mg Rx, # 30 tablet, 11 Refills, Maintenance, 218:47:00 EST, Tablet, [facility] #[id number], Partial fill upon patient request if the prescription is for a schedule II opioid drug., 168, cm, .. Start Date: 09/25/20 Stop Date: 09/20/21 Status: Ordered losartan 25 mg oral tablet 25 mg, 1, tablet, By Mouth, Daily, Call if any significant lightheadedness, # 30 tablet, Refills 11, Tot. Refills 11, Maintenance, 09/24/20 16:12:00 EST, Route to Pharmacy Electronically, [facility][id number], 168, cm, 09/23/20 10:39:00 EST, He... Start Date: 09/24/20 Stop Date: 09/19/21 Status: Ordered metoprolol 25 mg oral tablet 25 mg, 1, tablet, By Mouth, Daily, # 30 tablet, Refills 11, Tot. Refills 11, Maintenance, 09/24/20 16:12:00 EST, Route to Pharmacy Electronically, [facility] #[id number], 168, cm, 09/23/20 10:39:00 EST, Height, 92.2, kg, 01/29/19 21:34:00 EDTDr... Start Date: 09/24/20 Stop Date: 09/19/21 Status: Ordered Problem List Condition Effective Dates Status Health Status Inform ant CAD (coronary artery disease ), [place] coronary artery(Confirmed) Active Chronic GERD(Confirmed) Active Hx of CABG(Confirmed) 2015 Active Hyperlipidemia(Confirmed) Active Hypertensive heart disease(Confirmed) Active Mild intermittent asthma(Confirmed) Active WENDIE (obstructive sleep apnea)(Confirmed) Active Prediabetes(Confirmed) Active 1Surgery in [place], unknown #vessels Social History Social History Type Response Tobacco Tobacco user in hous ehold: No. Type: Cigarettes. Tobacco use times per day: Former smoker, 5 cigarettes a day. Started at age: 15 Years. Stopped at age: 22 Years. Sex
--- OUTSIDE RECORDS SUMMARY | 2023-12-29 03:51 | XMS_ITS | Continuity of Care Document ---
Author Organization [facility] [place] Address [address] [place] [address]- Care Team Providers Care Straddle Truck Driver Name Role Phone Linda Grajeda NP Primary Care Physician Encounter [facility] Date(s): 01/21/20 - 02/20/20 [facility] [address] [address]- [facility] Attending Physician: Haresh Jeffrey Admitting Physician: Haresh Jeffrey Referring Physician: Haresh Jeffrey Allergies, Adverse Reactions, Alerts Substance Reaction Severity Status penicillin Rash Active Immunizations Given and Recorded Vaccine Date Status Refusal Reason pneumococcal 23-valent vaccine 09/19/18 Given influenza virus vaccine, inactivated 09/19/18 Give n Medications No Known Medications Problem List Condition Effective Dates Status Health Status Inform ant CAD (coronary artery disease ), [place] coronary artery(Confirmed) Active Chronic GERD(Confirmed) Active Hx [...]
--- OUTSIDE RECORDS SUMMARY | 2023-12-29 03:52 | XMS_ITS | Continuity of Care Document ---
Author Organization [facility] Primary [facility] [place] Address [address] [place] [address]- Care Team Providers Care Cost Control Supervisor Name Role Phone Taras WAREHOUSE DIRECTOR, Linda Watkins Primary Care Physician ( [phone] Encounter [facility] Date(s): 03/25/22 - 04/24/22 [facility] [place] [address] [place] [address]- Allergies, Adverse Reactions, Alerts Substance Reaction Severity Status penicillin Rash Active Immunizations Given and Recorded Vaccine Date Status Refusal Reason SARS-CoV-2 (COVID-19) mRNA-1273 vaccine 01/26/21 R ecorded SARS-CoV-2 (COVID-19) mRNA-1273 vaccine 12/29/20 R ecorded pneumococcal 23-valent vaccine 09/19/18 Given influenza virus vaccine, inactivated 09/19/18 Give n Problem List Condition Effective Dates Status Health Status Inform ant CAD (coronary artery disease ), [place] coronary artery(Confirmed) Active Chronic GERD(Confirmed) Active Hx [...]
--- OUTSIDE RECORDS SUMMARY | 2023-12-29 03:52 | XMS_ITS | Continuity of Care Document ---
Author Organization [facility] Primary [facility] [place] Address [address] [place] [address]- Care Team Providers Care Business Education Instructor Name Role Phone Not on Staff, PCP Primary Care Physician Unavail able Encounter [facility] Date(s): 12/28/22 - 04/27/23 [facility] [place] [address] [place] [address]- Attending Physician: Chandan Merritt MD Allergies, Adverse Reactions, Alerts Substance Reaction [...] 10/07/21 9:14:00 EST, Route to Pharmacy Electronically, [id number], [facility]/pharmacy #[id number], 169, cm, 07/18/21 7:10:00 EST, Height, 87.7, kg... Start Date: 10/07/21 Status: Ordered aspirin 81 mg oral delayed release tablet 81 mg, 1, tablet, By Mouth, Daily, # 90 tablet, Refills 3, Tot. Refills 3, Maintenance, 04/06/23 11:16:00 EDT, Route to Pharmacy Electronically, [facility]/pharmacy #[id number], 168, cm, 04/06/23 10:55:00 EDT, Height, 86.5, kg, 11/16/21 11:39:00 EDT, Dry Weight Start Date: 04/06/23 Status: Ordered atorvastatin 80 mg oral tablet 1 tablet, By Mouth, Daily, # 90 tablet, 3 Refills, Maintenance, 04/06/23 11:16:00 EDT, [facility]/pharmacy#1130, 168, cm, 04/06/23 10:55:00 EDT, Height, 86.5, kg, 11/16/21 11:39:00 EDT, Dry Weight Start Date: 04/06/23 Status: Ordered losartan 25 mg oral tablet 1 tablet, By Mouth, Daily, # 90 tablet, 3 Refills, Maintenance, 04/06/23 11:16:00 EDT, [facility]/pharmacy#1130, 168, cm, 04/06/23 10:55:00 EDT, Height, 86.5, kg, 11/16/21 11:39:00 EDT, Dry Weight Start Date: 04/06/23 Status: Ordered metoprolol 25 mg oral tablet, extended release 25 mg, 1, tablet, By Mouth, Daily, # 90 tablet, Refills 3, Tot. Refills 3, Maintenance, 04/06/23 11:16:00 EDT, Route to Pharmacy Electronically, [facility]/pharmacy #[id number], Partial fill upon patient request if the prescription is for a schedule II opioid drug... Start Date: 04/06/23 Status: Ordered omeprazole 40 mg oral enteric coated capsule 1 capsule, By Mouth, Daily, # 90 capsule, 0 Refills, Maintenance, 02/14/23 20:47:00 EDT, [facility] [id number], 168, cm, 02/02/23 8:13:00 EDT, Height, 86.5, kg, 11/16/21 11:39:00 EDT, Dry Weight Start Date: 02/14/23 Status: Ordered Symbicort 80mcg/4.5mcg Inhaler 2, puffs, Inhalation, 2 times a day, # 3 each, Refills 1, Tot. Refills 1, Maintenance, 11/03/21 9:44:00 EST, Aerosol, Route to Pharmacy Electronically, [id number], [facility]/pharmacy #[id number], 169, cm, 07/18/21 7:10:00 EST, [...] ealth Status Informant CAD (coronary artery disease), [place] coronary artery Confirmed Active Epilepsy Confirmed Active Chronic GERD Confirmed Active Hx of CABG 1 Confirmed 2016 Active Hyperlipidemia Confirmed Active Hypertensive heart disease Confirmed Active Mild intermittent asthma Confirmed Active Obese class I Confirmed Active Class 1 obesity with body mass index (BMI) of 30.0 to 30.9 in adult Confirmed Active WENDIE (obstructive sleep apnea) Confirmed Active Prediabetes Confirmed Active 1Surgery in [place], unknown #vessels Social History Social History Type Response Smoking Status Former smoker, quit more than 30 days ago entered on: 10/20/22 Sex Patient Care team information Care Team Personnel Name: Zoie Santiago RN Position: [facility] RN Member Role: Primary Care Nurse Name: Not on Staff, PCP Position: [facility] Physician (General Medicine) Member Role: PCP Care Team Related Persons Name: KALEN BECKER Address: home [address] [place] [address] [address] [place] [address] Name: KALEN BUSH Address: home [address] [place] [address] Name: WILLIAM STINSON
--- OUTSIDE RECORDS SUMMARY | 2023-12-29 03:52 | XMS_ITS | Continuity of Care Document ---
Author Organization [facility] Address [address] [place] [address]- Care Team Providers Care Airport Manager Name Role Phone Taras COAL HANDLER, Linda Watkins Primary Care Physician Encounter [facility] Date(s): 05/09/19 - 09/20/[address] [address]- [facility] Attending Physician: Hema Hernandez MD Admitting Physician: Hema Hernandez MD Allergies, Adverse Reactions, Alerts Substance Reaction [...] Inform ant CAD (coronary artery disease ), [place] coronary artery(Confirmed) Active Chronic GERD(Confirmed) Active Hx [...]
--- OUTSIDE RECORDS SUMMARY | 2023-12-29 03:52 | XMS_ITS | Continuity of Care Document ---
Author Organization [facility] Primary [facility] [place] Address [address] [place] [address]- Care Team Providers Care Aviation Operations Specialist Name Role Phone Taras CRUZ, Linda Watkins Primary Care Physician Encounter [facility] Date(s): 12/10/20 - 01/09/21 [facility] [address] [address] Attending Physician: Haresh Jeffrey Admitting Physician: AdmtrHaresh Referring Physician: Admtr ArGuevara Allergies, Adverse Reactions, Alerts Substance Reaction Severity Status penicillin Rash Active Immunizations Given and Recorded Vaccine Date Status Refusal Reason pneumococcal 23-valent vaccine 09/19/18 Given influenza virus vaccine, inactivated 09/19/18 Give n Medications aspirin 81 mg oral delayed release tablet 81 mg, 1, tablet, By Mouth, Daily, # 30 tablet, Refills 11, Tot. Refills 11, Maintenance, 09/24/20 16:12:00 EST, Route to Pharmacy Electronically, [facility] #[id number], 168, cm, 09/23/20 10:39:00 EST, Height, 92.2, kg, 01/29/19 21:34:00 EDTDr... Start Date: 09/24/20 Stop Date: 09/19/21 Status: Ordered atorvastatin 80 mg oral tablet 1 tablet = 80 mg, By Mouth, Daily, replace 40 mg Rx, # 30 tablet, 11 Refills, Maintenance, 218:47:00 EST, Tablet, [facility] #[id number], Partial fill upon patient request if the prescription is for a schedule II opioid drug., 168, cm, .. Start Date: 09/25/20 Stop Date: 09/20/21 Status: Ordered losartan 25 mg oral tablet 25 mg, 1, tablet, By Mouth, Daily, Call if any significant lightheadedness, # 30 tablet, Refills 11, Tot. Refills 11, Maintenance, 09/24/20 16:12:00 EST, Route to Pharmacy Electronically, [facility] #[id number], 168, cm, 09/23/20 10:39:00 EST, [place] Start Date: 09/24/20 Stop Date: 09/19/21 Status: Ordered metoprolol 25 mg oral tablet 25 mg, 1, tablet, By Mouth, Daily, # 30 tablet, Refills 11, Tot. Refills 11, Maintenance, 09/24/20 16:12:00 EST, Route to Pharmacy Electronically, [facility] #[id number], 168, cm, 09/23/20 10:39:00 EST, Height, 92.2, kg, 01/29/19 21:34:00 EDTDr... Start Date: 09/24/20 Stop Date: 09/19/21 Status: Ordered Problem List Condition Effective Dates Status Health Status Inform ant CAD (coronary artery disease ), [place] coronary artery(Confirmed) Active Chronic GERD(Confirmed) Active Hx of CABG(Confirmed) 2015 Active Hyperlipidemia(Confirmed) Active Hypertensive heart disease(Confirmed) Active Mild intermittent asthma(Confirmed) Active WENDIE (obstructive sleep apnea)(Confirmed) Active Prediabetes(Confirmed) Active 1Surgery in [place], unknown #vessels Social History Social History Type Response Tobacco Tobacco user in hous ehold: No. Type: Cigarettes. Tobacco use times per day: Former smoker, 5 cigarettes a day. Started at age: 15 Years. Stopped at age: 22 Years. Sex
--- OUTSIDE RECORDS SUMMARY | 2023-12-29 03:52 | XMS_ITS | Continuity of Care Document ---
Author Organization [facility] Address [address] [place] [address]- Care Team Providers Care Economic Development Coordinator Name Role Phone Taras CRUZ, Linda Watkins Primary Care Physician [facility] [facility] Date(s): 04/07/22 - 06/18/22 [facility] [address] [place] [address]- Attending Physician: Tito Mcarthur MD Admitting Physician: Tito Mcarthur MD Referring Physician: Linda Grajeda NP Allergies, [...] 10/07/21 9:14:00 EST, Route to Pharmacy Electronically, [id number], [facility] #[id number], 169, cm, 07/18/21 7:10:00 EST, Height, 87.7, kg... Start Date: 10/07/21 Status: Ordered aspirin 81 mg oral delayed release tablet 81 mg, 1, tablet, By Mouth, Daily, # 90 tablet, Refills 1, Tot. Refills 1, Maintenance, 10/16/21 8:06:00 EST, Route to Pharmacy Electronically, [facility][id number], 169, cm, 07/18/21 7:10:00 EST, Height, 87.7, kg, 07/17/21 16:43:00 EST, Dry Weight Start Date: 10/16/21 Status: Ordered atorvastatin 80 mg oral tablet 1 tablet, By Mouth, Daily, # 90 tablet, 1 Refills, Maintenance, 04/13/22 4:52:00 EDT, [facility] #1130, 168, cm, 03/22/22 10:18:00 EDT, Height, 86.5, kg, 11/16/21 11:39:00 EDT, Dry Weight Start Date: 04/13/22 Status: Ordered losartan 25 mg oral tablet 1 tablet, By Mouth, Daily, # 90 tablet, 1 Refills, Maintenance, 04/13/22 4:54:00 EDT, [facility] #1130, 168, cm, 03/22/22 10:18:00 EDT, Height, 86.5, kg, 11/16/21 11:39:00 EDT, Dry Weight Start Date: 04/13/22 Status: Ordered Metoprolol Tartrate 25 mg oral tablet 1 tablet, By Mouth, Daily, # 90 tablet, 1 Refills, Maintenance, 04/13/22 4:54:00 EDT, [facility] #[id number], 168, cm, 03/22/22 10:18:00 EDT, Height, 86.5, kg, 11/16/21 11:39:00 EDT, Dry Weight Start Date: 04/13/22 Status: Ordered omeprazole 40 mg oral enteric coated capsule 1 capsule = 40 mg, By Mouth, Daily, # 90 capsule, 1 Refills, Maintenance, 10/07/21 9:12:00 EST, EC Capsule, [facility] #[id number], Partial fill upon patient request if the prescription is for a scheduleII opioid drug., 169, cm, 07/18/21 7:10:00 EST, Hei... Start Date: 10/07/21 Status: Ordered Symbicort 80mcg/4.5mcg Inhaler 2, puffs, Inhalation, 2 times a day, # 3 each, Refills 1, Tot. Refills 1, Maintenance, 11/03/21 9:44:00 EST, Aerosol, Route to Pharmacy Electronically, [id number], [facility] #[id number], 169, cm, 07/18/21 7:10:00 EST, [...] ealth Status Informant CAD (coronary artery disease), [place] coronary artery Confirmed Active Chronic GERD Confirmed Active Hx of CABG 1 Confirmed 2016 Active Hyperlipidemia Confirmed Active Hypertensive heart disease Confirmed Active Mild intermittent asthma Confirmed Active Obese class I Confirmed Active Class 1 obesity with body mass index (BMI) of 30.0 to 30.9 in adult Confirmed Active WENDIE (obstructive sleep apnea) Confirmed Active Prediabetes Confirmed Active 1Surgery in [place], unknown #vessels Social History Social History Type Response Tobacco Tobacco user in hous ehold: No. Type: Cigarettes. Tobacco use times per day: Former smoker, 5 cigarettes a day. Started at age: 15 Years. Stopped at age: 22 Years. Sex Patient Care team information Personnel Name: Linda Grajeda NP Address: Address: [address] [place] [id number]
--- OUTSIDE RECORDS SUMMARY | 2023-12-29 03:52 | XMS_ITS | Continuity of Care Document ---
Author Organization [facility] [place] Address [address] [place] [address]- Care Team Providers Care Apparel Pattern Maker Name Role Phone Linda Grajeda NP Primary Care Physician Encounter [facility] Date(s): 06/10/20 - 07/10/20 [facility] [address] [place] [address]- Allergies, Adverse Reactions, Alerts Substance Reaction Severity Status penicillin Rash Active Immunizations Given and Recorded Vaccine Date Status Refusal Reason pneumococcal 23-valent vaccine 09/19/18 Given influenza virus vaccine, inactivated 09/19/18 Give n Problem List Condition Effective Dates Status Health Status Inform ant CAD (coronary artery disease ), [place] coronary artery(Confirmed) Active Chronic GERD(Confirmed) Active Hx of CABG(Confirmed) 2015 Active Hyperlipidemia(Confirmed) Active Hypertensive heart disease(Confirmed) Active Mild intermittent asthma(Confirmed) Active WENDIE (obstructive sleep apnea)(Confirmed) Active Prediabetes(Confirmed) Active 1Surgery in [place], unknown #vessels Social History Social History Type Response Tobacco Tobacco user in [facility] ehold: No. Type: Cigarettes. Tobacco use times per day: Former smoker, 5 cigarettes a day. Started at age: 15 Years. Stopped at age: 22 Years. Sex
--- OUTSIDE RECORDS SUMMARY | 2023-12-29 03:52 | XMS_ITS | Continuity of Care Document ---
Author Organization [facility] Address [address] [place] [address]- Care Team Providers Care Halal Meat Packer Name Role Phone Taras CRUZ, Linda Watkins Primary Care Physician Encounter [facility] Date(s): 01/28/21 - 04/15/[address] [address] Attending Physician: Luis Carlos Allred MD Admitting Physician: Luis Carlos Allred MD Allergies, Adverse [...] 09/24/20 16:12:00 EST, Route to Pharmacy Electronically, [facility] #[id number], 168, cm, 09/23/20 10:39:00 EST, Height, 92.2, kg, 01/29/19 21:34:00 EDTDr... Start Date: 09/24/20 Stop Date: 09/19/21 Status: Ordered atorvastatin 80 mg oral tablet 1 tablet = 80 mg, By Mouth, Daily, replace 40 mg Rx, # 30 tablet, 11 Refills, Maintenance, 218:47:00 EST, Tablet, [facility] #[id number], Partial fill upon patient request if the prescription is for a schedule II opioid drug., 168, cm, .. Start Date: 09/25/20 Stop Date: 09/20/21 Status: Ordered losartan 25 mg oral tablet 25 mg, 1, tablet, By Mouth, Daily, Call if any significant lightheadedness, # 30 tablet, Refills 11, Tot. Refills 11, Maintenance, 09/24/20 16:12:00 EST, Route to Pharmacy Electronically, [facility] #[id number], 168, cm, 09/23/20 10:39:00 EST, He... Start Date: 09/24/20 Stop Date: 09/19/21 Status: Ordered metoprolol 25 mg oral tablet 25 mg, 1, tablet, By Mouth, Daily, # 30 tablet, Refills 11, Tot. Refills 11, Maintenance, 09/24/20 16:12:00 EST, Route to Pharmacy Electronically, [facility] #[id number], 168, cm, 09/23/20 10:39:00 EST, Height, 92.2, kg, 01/29/19 21:34:00 EDTDr... Start Date: 09/24/20 Stop Date: 09/19/21 Status: Ordered Problem List Condition Effective Dates Status Health Status Inform ant CAD (coronary artery disease ), [place] coronary artery(Confirmed) Active Chronic GERD(Confirmed) Active Hx of CABG(Confirmed) 2015 Active Hyperlipidemia(Confirmed) Active Hypertensive heart disease(Confirmed) Active Mild intermittent asthma(Confirmed) Active WENDIE (obstructive sleep apnea)(Confirmed) Active Prediabetes(Confirmed) Active 1Surgery in [place], unknown #vessels Social History Social History Type Response Tobacco Tobacco user in hous ehold: No. Type: Cigarettes. Tobacco use times per day: Former smoker, 5 cigarettes a day. Started at age: 15 Years. Stopped at age: 22 Years. Sex
--- OUTSIDE RECORDS SUMMARY | 2023-12-29 03:52 | XMS_ITS | Continuity of Care Document ---
Author Organization [facility] Address [address] [place] [address]- Care Team Providers Care Sales Operations Coordinator Name Role Phone Taras CRUZ, Linda Watkins Primary Care Physician ( [phone] Encounter [facility] Date(s): 04/10/20 - 06/05/20 [facility] [address] [place] [address]- [facility] Attending Physician: Brittanie Bro NP Admitting Physician: Brittanie Bro NP Referring Physician: Fuad Mendez MD, Chandan Allergies, Adverse Reactions, Alerts Substance Reaction Severity Status penicillin Rash Active Immunizations Given and Recorded Vaccine Date Status Refusal Reason pneumococcal 23-valent vaccine 09/19/18 Given influenza virus vaccine, inactivated 09/19/18 Give n Problem List Condition Effective Dates Status Health Status Inform ant CAD (coronary artery disease ), [place] coronary artery(Confirmed) Active Chronic GERD(Confirmed) Active Hx of CABG(Confirmed) 2015 Active Hyperlipidemia(Confirmed) Active Hypertensive heart disease(Confirmed) Active Mild intermittent asthma(Confirmed) Active WENDIE (obstructive sleep apnea)(Confirmed) Active Prediabetes(Confirmed) Active 1Surgery in [place], unknown #vessels Social History Social History Type Response Tobacco Tobacco user in [facility] ehold: No. Type: Cigarettes. Tobacco use times per day: Former smoker, 5 cigarettes a day. Started at age: 15 Years. Stopped at age: 22 Years. Sex
--- OUTSIDE RECORDS SUMMARY | 2023-12-29 03:52 | XMS_ITS | Continuity of Care Document ---
Author Organization [facility] Address [address] [place] [address]- Care Team Providers Care Dye Range Feeder Name Role Phone Not on Staff, PCP Primary Care Physician Unavail able Encounter [facility] Date(s): 04/06/23 - 05/06/23 [facility] [address] [place] [address]- Attending Physician: Haresh Jeffrey Admitting Physician: Haresh [...] 10/07/21 9:14:00 EST, Route to Pharmacy Electronically, [id number], [facility]/pharmacy #[id number], 169, cm, 07/18/21 7:10:00 EST, Height, 87.7, kg... Start Date: 10/07/21 Status: Ordered aspirin 81 mg oral delayed release tablet 81 mg, 1, tablet, By Mouth, Daily, # 90 tablet, Refills 3, Tot. Refills 3, Maintenance, 04/06/23 11:16:00 EDT, Route to Pharmacy Electronically, [facility]/pharmacy #[id number], 168, cm, 04/06/23 10:55:00 EDT, Height, 86.5, kg, 11/16/21 11:39:00 EDT, Dry Weight Start Date: 04/06/23 Status: Ordered atorvastatin 80 mg oral tablet 1 tablet, By Mouth, Daily, # 90 tablet, 3 Refills, Maintenance, 04/06/23 11:16:00 EDT, [facility]/pharmacy#1130, 168, cm, 04/06/23 10:55:00 EDT, Height, 86.5, kg, 11/16/21 11:39:00 EDT, Dry Weight Start Date: 04/06/23 Status: Ordered losartan 25 mg oral tablet 1 tablet, By Mouth, Daily, # 90 tablet, 3 Refills, Maintenance, 04/06/23 11:16:00 EDT, [facility]/pharmacy#1130, 168, cm, 04/06/23 10:55:00 EDT, Height, 86.5, kg, 11/16/21 11:39:00 EDT, Dry Weight Start Date: 04/06/23 Status: Ordered metoprolol 25 mg oral tablet, extended release 25 mg, 1, tablet, By Mouth, Daily, # 90 tablet, Refills 3, Tot. Refills 3, Maintenance, 04/06/23 11:16:00 EDT, Route to Pharmacy Electronically, [facility]/pharmacy #[id number], Partial fill upon patient request if the prescription is for a schedule II opioid drug... Start Date: 04/06/23 Status: Ordered omeprazole 40 mg oral enteric coated capsule 1 capsule, By Mouth, Daily, # 90 capsule, 0 Refills, Maintenance, 02/14/23 20:47:00 EDT, [facility]ORE [id number], 168, cm, 02/02/23 8:13:00 EDT, Height, 86.5, kg, 11/16/21 11:39:00 EDT, Dry Weight Start Date: 02/14/23 Status: Ordered Symbicort 80mcg/4.5mcg Inhaler 2, puffs, Inhalation, 2 times a day, # 3 each, Refills 1, Tot. Refills 1, Maintenance, 11/03/21 9:44:00 EST, Aerosol, Route to Pharmacy Electronically, [id number], [facility]/pharmacy #1130, 169, cm, 07/18/21 7:10:00 EST, [...] ealth Status Informant CAD (coronary artery disease), [place] coronary artery Confirmed Active Epilepsy Confirmed Active [...] Team Personnel Name: Zoie Santiago RN Position: [facility] RN Member Role: Primary Care Nurse Name: Not on Staff, PCP Position: S Physician (General Medicine) Member Role: PCP Care Team Related Persons Name: KALEN BECKER Address: [address] [place], [place] [id number] Name: KALEN BUSH Address: home [address] [place] [address] Name: WILLIAM STINSON
--- OUTSIDE RECORDS SUMMARY | 2023-12-29 03:52 | XMS_ITS | Continuity of Care Document ---
Author Organization [facility] [place] Address [address] [place] [address]- Care Team Providers Care Pyrotechnics Press Tender Name Role Phone Linda Grajeda NP Primary Care Physician Encounter [facility] Date(s): 06/08/21 - 07/08/21 [facility] [place] [address] [place] [address]- Allergies, Adverse Reactions, Alerts Substance Reaction Severity Status penicillin Rash Active Immunizations Given and Recorded Vaccine Date Status Refusal Reason SARS-CoV-2 (COVID-19) mRNA-1273 vaccine 01/26/21 R ecorded SARS-CoV-2 (COVID-19) mRNA-1273 vaccine 12/29/20 R ecorded pneumococcal 23-valent vaccine 09/19/18 Given influenza virus vaccine, inactivated 09/19/18 Give n Medications atorvastatin 80 mg oral tablet 1 tablet = 80 mg, By Mouth, Daily, replace 40 mg Rx, # 30 tablet, 11 Refills, Maintenance, 218:47:00 EST, Tablet, [facility] #[id number], Partial fill upon patient request if the prescription is for a schedule II opioid drug., 168, cm, .. Start Date: 09/25/20 Stop Date: 09/20/21 Status: Ordered losartan 25 mg oral tablet 25 mg, 1, tablet, By Mouth, Daily, Call if any significant lightheadedness, # 30 tablet, Refills 11, Tot. Refills 11, Maintenance, 09/24/20 16:12:00 EST, Route to Pharmacy Electronically, [facility] #[id number], 168, cm, 09/23/20 10:39:00 EST, He... Start Date: 09/24/20 Stop Date: 09/19/21 Status: Ordered metoprolol 25 mg oral tablet 25 mg, 1, tablet, By Mouth, Daily, # 30 tablet, Refills 11, Tot. Refills 11, Maintenance, 09/24/20 16:12:00 EST, [id number], 168, cm, 09/23/20 10:39:00 EST, Height, 92.2, kg, 01/29/19 21:34:00 EDTDr... Start Date: 09/24/20 Stop Date: 09/19/21 Status: Ordered Problem List Condition Effective Dates Status Health Status Inform ant CAD (coronary artery disease ), [place] coronary artery(Confirmed) Active Chronic GERD(Confirmed) Active Hx of CABG(Confirmed) 2015 Active Hyperlipidemia(Confirmed) Active Hypertensive heart disease(Confirmed) Active Mild intermittent asthma(Confirmed) Active WENDIE (obstructive sleep apnea)(Confirmed) Active Prediabetes(Confirmed) Active 1Surgery in [place], unknown #vessels Social History Social History Type Response Tobacco Tobacco user in hous ehold: No. Type: Cigarettes. Tobacco use times per day: Former smoker, 5 cigarettes a day. Started at age: 15 Years. Stopped at age: 22 Years. Sex
--- OUTSIDE RECORDS SUMMARY | 2023-12-29 03:52 | XMS_ITS | Continuity of Care Document ---
Author Organization [facility] [place] Address [address] [place] [address]- Care Team Providers Care Office Specialist Name Role Phone Taras CRUZ, Linda Watkins Primary Care Physician Encounter [facility] Date(s): 07/22/21 - 09/16/21 [facility] [place] [address] [place], [place] [address] Attending Physician: Chandan Merritt MD Allergies, Adverse [...] 07/18/21 8:06:00 EST, Route to Pharmacy Electronically, [id number], [facility], 169, cm, 07/18/21 7:10:00 EST, Height, 87... Start Date: 07/18/21 Stop Date: 08/17/21 Status: Ordered aspirin 81 mg oral delayed release tablet 81 mg, 1, tablet, By Mouth, Daily, # 90 tablet, Refills 0, Tot. Refills 0, Maintenance, 07/18/21 8:06:00 EST, Route to Pharmacy Electronically, [facility] 3, 169, cm, 07/18/21 7:10:00 EST, Height, 87.7, kg, 07/17/21 16:43:00 EST, Dry Weight Start Date: 07/18/21 Stop Date: 10/16/21 Status: Ordered atorvastatin 80 mg oral tablet 1 tablet = 80 mg, By Mouth, Daily, # 30 tablet, 0 Refills, Maintenance, 07/18/21 8:07:00 EST, Tablet, [facility] 3, Partial fill upon patient request if the prescription is for a scheduleII opioid drug., 169, cm, 07/18/21 7:10:00 EST, Hei... Start Date: 07/18/21 Stop Date: 08/17/21 Status: Ordered losartan 25 mg oral tablet 25 mg, 1, tablet, By Mouth, Daily, # 30 tablet, Refills 0, Tot. Refills 0, Maintenance, 07/18/21 8:06:00 EST, Route to Pharmacy Electronically, [facility] 3, 169, cm, 07/18/21 7:10:00 EST, Height, 87.7, kg, 07/17/21 16:43:00 EST, Dry Weight Start Date: 07/18/21 Stop Date: 08/17/21 Status: Ordered metoprolol 25 mg oral tablet 25 mg, 1, tablet, By Mouth, Daily, # 30 tablet, Refills 0, Tot. Refills 0, Maintenance, 07/18/21 8:08:00 EST, Route to Pharmacy Electronically, [facility] 3, 169, cm, 07/18/21 7:10:00 EST, Height, 87.7, kg, 07/17/21 16:43:00 EST, Dry Weight Start Date: 07/18/21 Stop Date: 08/17/21 Status: Ordered omeprazole 40 mg oral enteric coated capsule 1 capsule = 40 mg, By Mouth, Daily, # 30 capsule, 0 Refills, Maintenance, 07/18/21 8:08:00 EST, EC Capsule, [facility] 3, Partial fill upon patient request if the prescription is for a schedule II opioid drug., 169, cm, 07/18/21 7:10:00 ES... Start Date: 07/18/21 Stop Date: 08/17/21 Status: Ordered Symbicort 80mcg/4.5mcg Inhaler 2, puffs, Inhalation, 2 times a day, # 6.9 Gm, Refills 0, Tot. Refills 0, Maintenance, 07/18/21 8:08:00 EST, Aerosol, Route to Pharmacy Electronically, [id number], [facility], 169, cm, 07/18/21 7:10:00 EST, Heig... Start Date: 07/18/21 Status: Ordered Problem List Condition Effective Dates Status Health Status Inform ant CAD (coronary artery disease ), [place] coronary artery(Confirmed) Active Chronic GERD(Confirmed) Active Hx [...]
--- OUTSIDE RECORDS SUMMARY | 2023-12-29 03:52 | XMS_ITS | Continuity of Care Document ---
Author Organization [facility] [place] Address [address] [place] [address]- Care Team Providers Care Log Carrier Operator Name Role Phone Taras INVESTMENT EXECUTIVE, Linda Watkins Primary Care Physician Encounter [facility] Date(s): 11/10/22 - 12/10/22 [facility] [place] [address] [place] [address]- Attending Physician: Haresh Jeffrey Admitting Physician: AdmHaresh [...] 10/07/21 9:14:00 EST, Route to Pharmacy Electronically, [id number], [facility]/pharmacy #1130, 169, cm, 07/18/21 7:10:00 EST, Height, 87.7, kg... Start Date: 10/07/21 Status: Ordered aspirin 81 mg oral delayed release tablet 81 mg, 1, tablet, By Mouth, Daily, # 90 tablet, Refills 3, Tot. Refills 3, Maintenance, 10/20/22 11:35:00 EST, Route to Pharmacy Electronically, [facility]/pharmacy #1130, 168, cm, 10/20/22 10:58:00 EST, Height, 86.5, kg, 11/16/21 11:39:00 EDT, Dry Weight Start Date: 10/20/22 Status: Ordered atorvastatin 80 mg oral tablet 1 tablet, By Mouth, Daily, # 90 tablet, 3 Refills, Maintenance, 10/20/22 11:34:00 EST, [facility]/pharmacy#1130, 168, cm, 10/20/22 10:58:00 EST, Height, 86.5, kg, 11/16/21 11:39:00 EDT, Dry Weight Start Date: 10/20/22 Status: Ordered losartan 25 mg oral tablet 1 tablet, By Mouth, Daily, # 90 tablet, 3 Refills, Maintenance, 10/20/22 11:34:00 EST, [facility], cm, 10/20/22 10:58:00 EST, Height, 86.5, kg, 11/16/21 11:39:00 EDT, Dry Weight Start Date: 10/20/22 Status: Ordered metoprolol 25 mg oral tablet, extended release 25 mg, 1, tablet, By Mouth, Daily, # 90 tablet, Refills 3, Tot. Refills 3, Maintenance, 10/20/22 11:34:00 EST, [id number], Partial fill upon patient request if the prescription is for a schedule II opioid drug... Start Date: 10/20/22 Status: Ordered omeprazole 40 mg oral enteric coated capsule 1 capsule, By Mouth, Daily, # 90 capsule, 1 Refills, Maintenance, 08/17/22 11:12:00 EST, [facility] [id number], 168, cm, 03/22/22 10:18:00 EDT, Height, 86.5, kg, 11/16/21 11:39:00 EDT, Dry Weight Start Date: 08/17/22 Status: Ordered Symbicort 80mcg/4.5mcg Inhaler 2, puffs, Inhalation, 2 times a day, # 3 each, Refills 1, Tot. Refills 1, Maintenance, 11/03/21 9:44:00 EST, Aerosol, Route to Pharmacy Electronically, [id number], [facility]/pharmacy #1130, 169, cm, 07/18/21 7:10:00 EST, Height, 87... Start Date: 11/03/21 Status: Ordered Zetia 10 mg oral tablet 1 tablet = 10 mg, By Mouth, Daily, # 90 tablet, 3 Refills, Maintenance, 10/20/22 11:39:00 EST, Tablet, [facility]/pharmacy #[id number], Partial fill upon patient request if the prescription is for a schedule II opioid drug., 168, cm, 10/20/22 10:58:00 EST, Height,... Start Date: 10/20/22 Status: Ordered Problem List Condition Confirmation Course Effective Dates Status H ealth Status Informant CAD (coronary artery disease), [place] coronary artery Confirmed Active Epilepsy Confirmed Active [...] Care Nurse Name: Linda Grajeda NP Position: [facility]O Associate Professional Member Role: PCP Address: Address: [address] [place] [address]- Care Team Related Persons Name: KALEN BECKER Address: home [address] [facility] [facility] [place] [address] Name: KALEN BUSH Address: home [address] [place] [address] Name: WILLIAM STINSON
--- NOTE | 2023-12-29 05:36 | ED_ITS ---
HPI - General Adult General Chief complaint: Abdominal Pain Stated complaint: abd pain/?Rectal bleeding Time Seen by Provider: 12/29/23 05:15 History of Present Illness HPI narrative: The patient is a 38-year-old male with a history of significant coronary disease who had bypass surgery at age 29. He is on aspirin and Plavix as well as other medications. He also has a history of gastritis and is on daily omeprazole. Several days ago the patient had an episode of epigastric discomfort that he thought was his gastritis. Sometime after that he had an urge to have a bowel movement and straining at stool and had bright red blood per rectum. He had another episode of bright red blood per rectum today under sample or circumstances. He came to the emergency room for evaluation. Related Data Previous Rx's ?Medication ?Instructions ?Recorded sucralfate 1 gram tablet 1 g PO TID PRN epigastric pain #60 12/29/23 tabs Allergies Allergy/AdvReac Type Severity Reaction Status Date / Time Penicillins Allergy Unknown Verified 12/28/23 23:09 [facility] Social History Social History (System 08/12/23 @ 11:37 by Yue Matthews) Advance Directives: No Advance Directives Information Provided: Yes Do you have a plan to hurt others: No Plan Physical Exam ED Vital Signs: Vital Signs - 24 hr 12/28/23 23:09 12/29/23 03:20 12/29/23 05:54 Temperature 98.5 F 98.3 F 97.8 F Pulse Rate 80 64 73 Respiratory Rate 16 16 14 Blood Pressure 142/87 H 138/88 141/91 H Pulse Oximetry 99 95 96 Oxygen Delivery Method Room Air Room Air Room Air BMI result Body Mass Index 32.3 Const Other: The patient is awake and alert, pleasant and cooperative. He does not seem obviously acutely ill. HENMT Other: Face is symmetrical. Mucous membranes moist Eyes Other: Pupils are round equal, conjunctivae are clear Neck Other: No JVD Resp Effort & Inspection: normal respiratory effort Auscultation: clear to auscultation bilaterally Cardio Rate: regular rate Rhythm: regular rhythm Heart sounds: S1 normal heart sound present and S2 normal heart sound present GI Other: Abdomen is soft. There is some lower abdominal tenderness. Rectal exam showed no external hemorrhoids apparent. Excellent rectal tone. No masses appreciable in the rectum. Skin Other: Skin is pale and dry. Neuro Other: The patient is awake and alert with normal speech, symmetrical face, and normal use of his extremities. Normal coordination. Neurologically intact. Extrem Other: No peripheral edema Medications Administered Discontinued Medications Generic Name Dose Route Start Last Admin Trade Name Francisco PRN Reason Stop Dose Admin Polyethylene Glycol 17 gm 12/29/23 05:36 12/29/23 05:46 Polyethylene Glycol 3350 17 Gm Powd.Pack PO 12/29/23 05:37 17 gm ONCE ONE Administration Medical Decision Making Medical Decision Making [facility] Narrative: The patient is a 38-year-old male with a history early coronary disease who had bypass surgery at age 29. He presents today for evaluation of episodes of rectal bleeding over the last few days. He is on aspirin and clopidogrel. He describes having been straining at stools. Clinically the patient does not look unwell. I suspect his rectal bleeding is probably from an internal hemorrhoid. He is also complaining of some epigastric discomfort which I think is a separate complaint. I suspect that this is dyspepsia. The patient will be advised to take MiraLax daily to help soften his stools. Should take prescribed sucralfate in addition to his already prescribed omeprazole for what may be gastritis symptoms. He will be discharged to follow up with his PCP. He was given the name and contact number for the on-call hydraulic punch press operator and on-call general surgeon to help address his rectal bleeding. Lab Data 12/28/23 23:22 12/28/23 23:22 Labs: Lab Results 12/28/23 Range/Units 23:22 WBC 9.6 (4.8-10.8) X10*3/uL RBC 5.16 (4.60-5.80) X10*6/uL Hgb 16.0 (14.0-18.0) g/dl Hct 45.8 (42.0-52.0) % MCV 88.8 (80.0-98.0) fL MCH 31.0 (27.0-33.0) pg MCHC 34.9 (31.0-36.0) g/dl RDW 13.2 (11.0-16.0) % Plt Count 213 (160-400) X10*3/uL MPV 10.6 (9.4-12.4) fL Immature Gran % (Auto) 0.2 (0.0-0.4) % Neut % (Auto) 54.4 (45-73) % Lymph % (Auto) 30.3 (20-40) % [place] % (Auto) 8.8 (2-11) % Eos % (Auto) 5.4 H (0-4) % Baso % (Auto) 0.9 (0-2) % Lymph # (Auto) 2.9 (1.2-4.9) X10*3/uL [place] # (Auto) 0.8 (0.1-1.2) X10*3/uL Eos # (Auto) 0.5 H (0.0-0.4) X10*3/uL Baso # (Auto) 0.1 (0.0-0.2) X10*3/uL Abs Immat Gran (auto) 0.02 (0.00-0.03) X10*3/uL Absolute Neuts (auto) 5.2 (2.0-8.3) x10*3/uL Absolute Nucleated RBC 0.000 (0.0-0.012) X10*3/uL Nucleated RBC % (auto) 0.0 (0.0-0.2) /100WBC Sodium 141 (135-145) mmol/L Potassium 3.9 (3.3-5.1) mmol/L Chloride 107 (96-108) mmol/L Carbon Dioxide 26 (22-29) mmol/L Anion Gap 12 (12-20) BUN 13 (9-16) mg/dL Creatinine 1.02 (0.5-1.4) mg/dL Estim Creat Clear Calc 102.5 Estimated GFR > 60 Random Glucose 110 (60-115) mg/dL Calcium 9.5 (8.4-10.2) mg/dL Total Bilirubin 0.5 (0.0-1.0) mg/dL Direct Bilirubin 0.1 (0.0-0.5) mg/dL AST 40 H (5-37) U/L ALT 71 H (0-40) U/L Alkaline Phosphatase 81 (39-117) U/L Total Protein 8.1 H (6.5-8.0) g/dL Albumin 4.6 (3.5-5.0) g/dL Lipase 41 (8-78) U/L Discharge Plan Discharge Clinical Impression: Rectal bleeding, Gastritis Patient Disposition: Home, Self-Care Instructions: Rectal Bleeding (ED) Additional Instructions: I think that your rectal bleeding is probably coming from an internal hemorrhoid which may be a result of straining at stool. Please take polyethylene glycol (often sold as MiraLax), 17 grams per day and a large glass of water. You may purchase MiraLax or often a store brand is cheaper. You also seemed to have some symptoms that I suspect are related to gastritis. Please continue your omeprazole. I have sent a prescription for another medication which is helpful for gastritis called sucralfate which you may take 2 to 3 times a day as needed when you are feeling discomfort. Please plan on contacting the hydraulic punch press operator (Dr. Hernandez) or the general surgeon (Dr. Hunter) to see if you can arrange follow-up for further evaluation of your rectal bleeding with a scope to look to see if you have internal hemorrhoids. Stay in touch with your regular doctor as well. It would also be good for you to contact your jordan worker to see if you are able to stop your Plavix at any time. You may need to stop your Plavix before you have a procedure. Return to the emergency room if your symptoms are significantly worse. Prescriptions: New sucralfate 1 gram tablet 1 g PO TID PRN (Reason: epigastric pain) Qty: 60 0RF Referrals: [facility] [Provider Group] (Bright red blood per rectum) Hema Hernandez MD [Physician] - (Bright red blood per rectum, suspect internal hemorrhoidal bleeding) Wesley Huntre MD [Physician] - (Bright red blood per rectum, suspect internal hemorrhoidal bleeding) Interventions: ED Discharge Assessment Last Done: 12/29/23 05:54 Discharge Date/Time: 12/29/23 05:56 Print Language: Bangladeshi
[2023-12-29] MEDS: polyethylene glycoL 3350 17 GM POWD.PACK PO (05:46)
[2023-12-29 05:54] VITALS: BP 141/91; PULSE 73; RESP 14; TEMP 36.6; O2SAT 96
== END 2023-12-29 05:56 | disposition home or self-care (01) ==
PROVIDERS: Emergency Provider Emergency Medicine
DX: K29.71 Gastritis, unspecified, with bleeding (principal); R10.9 Unspecified abdominal pain; Z79.899 Other long term (current) drug therapy
CPT/HCPCS: 36415; 80053; 82248; 83690; 85025; 99283

== ENCOUNTER 2024-01-09 13:50 | Outpatient (AMB) | payer MEDICAID, SELFPAY ==
--- NOTE | 2024-01-09 13:53 | A.OFFVIS_ITS ---
Vital Signs 01/09/24 14:05 Height 5 ft 6 in Weight 200 lb BMI 32.3 BP 130/68 Blood Pressure Location Rt brachial Position Sitting Pulse 70 Intake Visit Reasons: Rectal bleeding Intake Note: This patient presents for [facility] emergency department follow-up for rectal bleeding. Patient c/o; reports no rectal bleeding, reports constipation, reports feels bloated after small meals, reports painful bm. Laceworker Required: Yes Laceworker Language: Sausage Grinder Name: Claudia Information Interpreted: non-clinical & clinical Accompanied by: Spouse Allergies Penicillins Allergy (Verified 12/28/23 23:09) Unknown Medication List - Last Reviewed 01/09/24 by SCOOTER Munoz aspirin 81 mg PO QAM atorvastatin 80 mg PO DAILY metoprolol succinate ER 25 mg PO DAILY omeprazole 40 mg PO QAM sucralfate 1 g PO TID PRN HPI HPI Rectal bleeding: Details: 38-year-old male referred for passage of bright blood per rectum. He apparently went to the emergency room last 12/28/2023 because of passage of bright blood per rectum multiple times that day. He says that he also had some diffuse abdominal pain just prior to that He went to the ER that the and was instructed to see a scalp treatment specialist and me as a follow-up He has had no further episodes since then He also has had this chronic reflux symptoms that he feels has been worsening. He said he has been waiting to see a scalp treatment specialist for this He is on Plavix and aspirin because of a previous stent for his coronary disease. [facility] Medical History (Updated 01/09/24 @ 14:27 by Juvenal Rahman MD) Coronary artery disease Surgical History (Updated 01/09/24 @ 14:27 by Juvenal Rahman MD) Stented coronary artery No pertinent past surgical history Family History (Updated 01/09/24 @ 14:08 by SCOOTER Munoz) Other Family history unknown Review of Systems Const Denies chills and Denies fever(s) Card Denies chest pain, Denies dyspnea and Denies dyspnea on exertion Resp Denies cough, Denies dyspnea and Denies dyspnea on exertion GI Reports hematochezia, Denies change in bowel habits and Reports constipation Denies hematuria and Denies difficulty urinating Musc Denies back pain and Denies limited range of motion Neuro Denies focal weakness and Denies convulsions Psych Denies depression and Denies mood swings Physical Exam Vital Signs: Last Vital Signs Pulse 70 01/09/24 14:05 BP 130/68 01/09/24 14:05 BMI result Body Mass Index 32.3 Const General: comfortable and no acute distress Orientation/consciousness: patient oriented x3 Neck Neck: Yes no lymphadenopathy Resp Auscultation: clear to auscultation bilaterally Cardio Rhythm: regular rhythm GI Palpation (GI): Soft to palpation, nontender and no guarding Neuro General: patient oriented x3 Assessment & Plan Assessment & Plan (1) Rectal bleeding: Code(s): K62.5 - Hemorrhage of anus and rectum Category: Medical Plan: He had multiple episodes of bright blood per rectum last 12/28/2023. He was seen in the ER and referred us He actually has reflux seemed swell and he has been waiting for a scalp treatment specialist to see him. His bleeding may likely be outlet bleeding from hemorrhoids especially as he is on Plavix and aspirin for cardiac stents I therefore have recommended for him to be seen by the scalp treatment specialist undergo EGD and colonoscopy. I told him that I will see him again in the office after GI workup to discuss plans especially if he does end up with hemorrhoids. He understands the plan and this seems to be comfortable with this. Coding Level of Care Code New Pt Level 3 (47798) Diagnoses Rectal bleeding K62.5
[2024-01-09 14:05] VITALS: BP 130/68; PULSE 70; BMI 32.3
== END 2024-01-09 14:27 | disposition home or self-care (01) ==
PROVIDERS: Visit Provider Surgery
DX: K62.5 Hemorrhage of anus and rectum (principal)
CPT/HCPCS: 99203

== ENCOUNTER → 2024-01-09 13:50 | Outpatient (BNVA) | payer MEDICAID, SELFPAY | PROVIDERS: Visit Provider Surgery | DX: K62.5 Hemorrhage of anus and rectum (principal) | CPT/HCPCS: 99202 ==

== ENCOUNTER 2024-04-20 10:41 | Outpatient (REF) | payer MEDICAID, SELFPAY ==
[2024-04-20 14:26] LABS: MANUAL DIFF FLAG NO
[2024-04-20 14:33] LABS: Basophils Absolute Auto 0.1 X10*3/uL (0.0-0.2); Basophils Percent Auto 1.2 % (0-2); Eosinophils Absolute Auto 0.5 X10*3/uL (0.0-0.4); Eosinophils Percent Auto 7.1 % (0-4); Hematocrit 47.3 % (42.0-52.0); Hemoglobin 16.6 g/dl (14.0-18.0); Imm Gran Abs Auto 0.03 X10*3/uL (0.00-0.03); Imm Gran Pct Auto 0.4 % (0.0-0.4); Lymphocytes Absolute Auto 1.7 X10*3/uL (1.2-4.9); Lymphocytes Percent Auto 22.3 % (20-40); Mean Corpuscular HGB Conc 35.1 g/dl (31.0-36.0); Mean Corpuscular Hemoglobin 31.3 pg (27.0-33.0); Mean Corpuscular Volume 89.1 fL (80.0-98.0); Mean Platelet Volume 11.4 fL (9.4-12.4); Monocytes Absolute Auto 0.7 X10*3/uL (0.1-1.2); Monocytes Percent Auto 9.1 % (2-11); Neutrophils Absolute Auto 4.6 x10*3/uL (2.0-8.3); Neutrophils Percent Auto 59.9 % (45-73); Platelet Count 182 X10*3/uL (160-400); Red Blood Count 5.31 X10*6/uL (4.60-5.80); Red Cell Distribution Width 13.2 % (11.0-16.0); White Blood Count 7.6 X10*3/uL (4.8-10.8)
[2024-04-20 14:57] LABS: Alanine Aminotransferase 42 U/L (0-40); Albumin Level 4.6 g/dL (3.5-5.0); Alkaline Phosphatase 89 U/L (39-117); Anion Gap 11 (12-20); Aspartate Amino Transferase 29 U/L (5-37); Bilirubin Total 0.6 mg/dL (0.0-1.0); Blood Urea Nitrogen 13 mg/dL (9-16); Calcium 9.6 mg/dL (8.4-10.2); Carbon Dioxide 28 mmol/L (22-29); Chloride 106 mmol/L (96-108); Cholesterol 247 mg/dL (<200); Estimated Glomerular Filt Rate > 60; Glucose Random 101 mg/dL (60-115); HDL Cholesterol 42 mg/dL (>40); LDL Cholesterol Calculated 186 mg/dL (<100); Potassium 4.3 mmol/L (3.3-5.1); Sodium 141 mmol/L (135-145); Total Protein 7.9 g/dL (6.5-8.0); Triglycerides 95 mg/dL (<150)
[2024-04-20 15:09] LABS: PSA,Total (Free>4and<10) 0.38 ng/mL (0.00-4.00)
== END 2024-04-20 10:42 | disposition home or self-care (01) ==
LOC: HO.CHCLDS 10:41
PROVIDERS: Visit Provider Family Medicine
DX: I11.9 Hypertensive heart disease without heart failure (principal); Z13.9 Encounter for screening, unspecified
CPT/HCPCS: 36415; 80053; 80061; 84153; 85025